=== PATIENT | female | born 1950 | race Caucasian/White ===

== ENCOUNTER 2016-06-03 02:29 | Inpatient (IN) | payer BC ==
[~2016-06-03] VITALS: Ht 172.1 cm; Wt 114.4 kg
[~2016-06-03 02:29] MED LIST: ATEN-39 PO; ESTR1TAB88 PO; FIBER CON; FLAX100016 PO; LOVA40TA70 PO; MULT-543 PO; OLME1TAB12 PO; OMEP20TA11 PO; VIT B
--- OUTSIDE RECORDS SUMMARY | 2016-06-03 02:32 | XMS REPORT | Referral Summary ---
Author Author [facility] Medicine Organization [facility] Address Unknown Phone Unavailable Care Team Providers Care Wares Sorter Name Role Phone Azalia Roger Primary Care Physician [phone] Encounter Date(s): 08/05/14 - 08/05/14 [facility] [address] [place] [address] Discharge Disposition: 01-Home or Self Care Attending Physician: Ramy Roger MD Admitting Physician: Ramy Roger MD Vital Signs Most recent to 1 oldest [Reference Range]: Temperature Tympanic 36.6 degC [36.6-38.1 degC] (08/05/14 10:31 AM) Peripheral Pulse 60 bpm Rate [60-100 bpm] (08/05/14 10:31 AM) Blood Pressure 130/74 mmHg [90-140/60-90 mmHg] (08/05/14 10:31 AM) Problem List Condition Effective Dates Status Health Status Informant Acute Active bronchitis(Confirmed ) Acute lower Active UTI(Confirmed) Visit for screening Active mammogram(Confirmed) Cellulitis of Active nostril(Confirmed) Chicken Active pox(Confirmed) Foot pain, Active left(Confirmed) GERD(Confirmed) Resolved Hand paresthesia - Active both hands(Confirmed) High 2000 Active cholesterol(Confirme d) Hyperlipidemia(Confi Active rmed) Hypertension(Confirm Active ed) Impaired fasting Active blood sugar(Confirmed) Kidney disease Active childhood(Confirmed) Kidney stones Active childhood(Confirmed) Well adult Active exam(Confirmed) Metabolic Active syndrome(Confirmed) Need for influenza Active vaccination(Confirme d) Nephrosis as a Active child(Confirmed) Obstructive sleep Active apnea, adult(Confirmed) MIRELLA (obstructive Active sleep apnea)(Confirmed) Overweight(Confirmed Active ) Plantar fasciitis of Active left foot(Confirmed) Snoring Active disorder(Confirmed) Need for hepatitis A Active and B vaccination(Confirme d) Allergies, Adverse Reactions, Alerts Substance Reaction Severity Status AZO Urinary Pain Relief chest tightness, cough, wheezing Active fluconazole diarrhea Moderate Active lisinopril cough Active Medications atenolol 100 mg oral tablet See Instructions, TAKE ONE TABLET BY MOUTH ONCE DAILY, # 90 tabs, 3 Refill(s), eRx: [place] [id number], TAKE ONE TABLET BY MOUTH ONCE DAILY Start Date: 05/16/14 Status: Ordered biotin 5 mg, Oral, Daily, 0 Refill(s) Start Date: 09/03/13 Status: Ordered Cranberry oral capsule 500 mg oral route daiy, 0 Refill(s) Start Date: 09/10/13 Status: Ordered estradiol 2 mg oral tablet 1 mg 0.5 tabs, Oral, Daily, # 45 tabs, 3 Refill(s), Pharmacy: [place] [id number], 0.5 tabs Oral Daily Start Date: 11/11/14 Status: Ordered flax oral capsule 1 caps, Oral, Daily, 0 Refill(s) Start Date: 09/10/13 Status: Ordered losartan-hydrochlorothiazide 100 mg-25 mg oral tablet See Instructions, TAKE ONE TABLET BY MOUTH ONCE DAILY FOR BLOOD PRESSURE, # 90 tabs, 2 Refill(s), eRx: [place] [id number], TAKE ONE TABLET BY MOUTH ONCE DAILY FOR BLOOD PRESSURE Start Date: 07/04/14 Status: Ordered lovastatin 40 mg oral tablet See Instructions, TAKE ONE TABLET BY MOUTH AT BEDTIME, # 90 tabs, 1 Refill(s), eRx: [place] [id number], TAKE ONE TABLET BY MOUTH AT BEDTIME Start Date: 09/23/14 Status: Ordered Metamucil 525 mg oral capsule 1 caps, Oral, Daily, as needed for constipation, # 100 caps, 0 Refill(s) Start Date: 09/10/13 Status: Ordered multivitamin 1 tablet, Oral, Daily, 0 Refill(s) Start Date: 09/03/13 Status: Ordered omeprazole 20 mg oral delayed release capsule 1 caps, Oral, Daily, 0 Refill(s) Start Date: 09/03/13 Status: Ordered triamcinolone 0.1% topical cream See Instructions, APPLY A THIN LAYER TOPICALLY TO AFFECTED AREA(S) TWICE DAILY. , # 15 unknown unit, eRx: [id number], APPLY A THIN LAYER TOPICALLY TO AFFECTED AREA(S) TWICE DAILY. Start Date: 04/23/14 Status: Ordered Vitamin B Complex oral capsule 1 caps, Oral, Daily, 0 Refill(s) Start Date: 09/03/13 Status: Ordered Vitamin D3 1,000 Intl_Units, Oral, Daily, 0 Refill(s) Start Date: 09/10/13 Status: Ordered Results No data available for this section Immunizations Vaccine Date Refusal Reason hepatitis A-hepatitis B vaccine 11/11/14 hepatitis A-hepatitis B vaccine 05/07/14 hepatitis A-hepatitis B vaccine 03/20/13 influenza virus vaccine, inactivated1 12/11/13 pneumococcal 23-polyvalent vaccine 01/09/07 tetanus/diphtheria/pertussis, acel(Tdap) 03/20/13 tetanus-diphth toxoids (Td) adult/adol 11/26/02 zoster vaccine live 10/26/11 1Result Comment: [12/11/2013] See scanned document Procedures Procedure Date Related Diagnosis Body Site Colonoscopy 2008 Appendectomy 2003 LEEANN BSO - Total abdominal hysterectomy and 2003 bilateral salpingo-oophorectomy Biopsy of breast 1998 Hospitalized for nephrosis as a child Social History Social History Type Response Smoking Status Never smoker Assessment and Plan Extracted from: Title: Ambulatory Patient Education Author: Ramy Roger MD Date: 08/05 Family Medicine Plantar Fasciitis (Heel Spur Syndrome) with Rehab The plantar fascia is a fibrous, ligament-like, soft-tissue structure that spans the bottom of the foot. Plantar fasciitis is a condition that causes pain in the foot due to inflammation of the tissue. SYMPTOMS Pain and tenderness on the underneath side of the foot. Pain that worsens with standing or walking. CAUSES Plantar fasciitis is caused by irritation and injury to the plantar fascia on the underneath side of the foot. Common mechanisms of injury include: Direct trauma to bottom of the foot. Damage to a small nerve that runs under the foot where the main fascia attaches to the heel bone. Stress placed on the plantar fascia due to bone spurs. RISK INCREASES WITH: Activities that place stress on the plantar fascia (running, jumping, pivoting, or cutting). Poor strength and flexibility. Improperly fitted shoes. Tight calf muscles. Flat feet. Failure to warm-up properly before activity. Obesity. PREVENTION Warm up and stretch properly before activity. Allow for adequate recovery between workouts. Maintain physical fitness: Strength, flexibility, and endurance. Cardiovascular fitness. Maintain a health body weight. Avoid stress on the plantar fascia. Wear properly fitted shoes, including arch supports for individuals who have flat feet. PROGNOSIS If treated properly, then the symptoms of plantar fasciitis usually resolve without surgery. However, occasionally surgery is necessary. RELATED COMPLICATIONS Recurrent symptoms that may result in a chronic condition. Problems of the lower back that are caused by compensating for the injury, such as limping. Pain or weakness of the foot during push-off following surgery. Chronic inflammation, scarring, and partial or complete fascia tear, occurring more often from repeated injections. TREATMENT Treatment initially involves the use of ice and medication to help reduce pain and inflammation. The use of strengthening and stretching exercises may help reduce pain with activity, especially stretches of the Achilles tendon. These exercises may be performed at home or with a therapist. Your caregiver may recommend that you use heel cups of arch supports to help reduce stress on the plantar fascia. Occasionally, corticosteroid injections are given to reduce inflammation. If symptoms persist for greater than 6 months despite non- surgical (conservative ), then surgery may be recommended. MEDICATION If pain medication is necessary, then nonsteroidal anti-inflammatory medications, such as aspirin and ibuprofen, or other minor pain relievers, such as acetaminophen, are often recommended. Do not take pain medication within 7 days before surgery. Prescription pain relievers may be given if deemed necessary by your caregiver. Use only as directed and only as much as you need. Corticosteroid injections may be given by your caregiver. These injections should be reserved for the most serious cases, because they may only be given a certain number of times. HEAT AND COLD Cold treatment (icing) relieves pain and reduces inflammation. Cold treatment should be applied for 10 to 15 minutes every 2 to 3 hours for inflammation and pain and immediately after any activity that aggravates your symptoms. Use ice packs or massage the area with a piece of ice (ice massage). Heat treatment may be used prior to performing the stretching and strengthening activities prescribed by your caregiver, physical therapist, or inside sales trainer. Use a heat pack or soak the injury in warm water. SEEK IMMEDIATE MEDICAL CARE IF: Treatment seems to offer no benefit, or the condition worsens. Any medications produce adverse side effects. EXERCISES RANGE OF MOTION (ROM) AND STRETCHING EXERCISES - Plantar Fasciitis (Heel Spur Syndrome) These exercises may help you when beginning to rehabilitate your injury. Your symptoms may resolve with or without further involvement from your physician, physical therapist or inside sales trainer. While completing these exercises, remember: Restoring tissue flexibility helps normal motion to return to the joints. This allows healthier, less painful movement and activity. An effective stretch should be held for at least 30 seconds. A stretch should never be painful. You should only feel a gentle lengthening or release in the stretched tissue. RANGE OF MOTION - Toe Extension, Flexion Sit with your right / left leg crossed over your opposite knee. Grasp your toes and gently pull them back toward the top of your foot. You should feel a stretch on the bottom of your toes and/or foot. Hold this stretch for seconds. Now, gently pull your toes toward the bottom of your foot. You should feel a stretch on the top of your toes and or foot. Hold this stretch for seconds. Repeat times. Complete this stretch times per day. RANGE OF MOTION - Ankle Dorsiflexion, Active Assisted Remove shoes and sit on a chair that is preferably not on a carpeted surface. Place right / left foot under knee. Extend your opposite leg for support. Keeping your heel down, slide your right / left foot back toward the chair until you feel a stretch at your ankle or calf. If you do not feel a stretch, slide your bottom forward to the edge of the chair, while still keeping your heel down. Hold this stretch for seconds. Repeat times. Complete this stretch times per day. STRETCH Gastroc, Standing Place hands on wall. Extend right / left leg, keeping the front knee somewhat bent. Slightly point your toes inward on your back foot. Keeping your right / left heel on the floor and your knee straight, shift your weight toward the wall, not allowing your back to arch. You should feel a gentle stretch in the right / left calf. Hold this position for seconds. Repeat times. Complete this stretch times per day. STRETCH Soleus, Standing Place hands on wall. Extend right / left leg, keeping the other knee somewhat bent. Slightly point your toes inward on your back foot. Keep your right / left heel on the floor, bend your back knee, and slightly shift your weight over the back leg so that you feel a gentle stretch deep in your back calf. Hold this position for seconds. Repeat times. Complete this stretch times per day. STRETCH Gastrocsoleus, Standing Note: This exercise can place a lot of stress on your foot and ankle. Please complete this exercise only if specifically instructed by your caregiver. Place the ball of your right / left foot on a step, keeping your other foot firmly on the same step. Hold on to the wall or a rail for balance. Slowly lift your other foot, allowing your body weight to press your heel down over the edge of the step. You should feel a stretch in your right / left calf. Hold this position for seconds. Repeat this exercise with a slight bend in your right / left knee. Repeat times. Complete this stretch times per day. STRENGTHENING EXERCISES - Plantar Fasciitis (Heel Spur Syndrome) These exercises may help you when beginning to rehabilitate your injury. They may resolve your symptoms with or without further involvement from your physician, physical therapist or inside sales trainer. While completing these exercises, remember: Muscles can gain both the endurance and the strength needed for everyday activities through controlled exercises. Complete these exercises as instructed by your physician, physical therapist or inside sales trainer. Progress the resistance and repetitions only as guided. STRENGTH - Towel Curls Sit in a chair positioned on a non-carpeted surface. Place your foot on a towel, keeping your heel on the floor. Pull the towel toward your heel by only curling your toes. Keep your heel on the floor. If instructed by your physician, physical therapist or inside sales trainer, add at the end of the towel. Repeat times. Complete this exercise times per day. STRENGTH - Ankle Inversion Secure one end of a rubber exercise band/tubing to a fixed object (table, pole). Loop the other end around your foot just before your toes. Place your fists between your knees. This will focus your strengthening at your ankle. Slowly, pull your big toe up and in, making sure the band/tubing is positioned to resist the entire motion. Hold this position for seconds. Have your muscles resist the band/tubing as it slowly pulls your foot back to the starting position. Repeat times. Complete this exercises times per day. Document Released: 03/07/2006 Document Revised: 05/29/2012 Document Reviewed: ExitCare Patient Information 2014 [employer] / [employer]. No follow up information was provided. Extracted from: Title: Metabolic syndrome, HTN Author: Ramy Roger MD Date: 08/05/14 Impression and Plan Diagnosis Bilateral plantar fasciitis (ICD9 728.71, Working, Medical). Cellulitis of nostril (ICD9 682.0, Working, Medical). GERD (ICD9 530.81, Working, Medical). Hyperlipidemia (ICD9 272.4, Working, Medical). Hypertension (ICD9 401.9, Working, Medical). Metabolic syndrome (ICD9 277.7, Working, Medical). Obstructive sleep apnea, adult (ICD9 327.23, Working, Medical). Plan: Use the Mupirocin ointment: tiny amount in each nostril 3 times daily for 10 days. Use Hibiclens soap to the rest of your skin for 10 days: especially under your fingernails. Continue healthy diet and exercise and your foot stretches and ice massage and shoe inserts. Continue your regular meds. See me in 3 months and as needed. . Orders Orders (Selected) Outpatient Orders Ordered Office Visit Level 4 Est 32662: Prescriptions Prescribed mupirocin 2% topical ointment: 1 jer, Topical, TID, tiny amount to both nostrils , 22 g, 1 Refill(s). Dx/Order Association Plan: Diagnosis: Bilateral plantar fasciitis Comment: Ordered: Office Visit Level 4 Est 31938; 08/05/14 11:00:00 CDT, Cellulitis of nostril | Hypertension | Metabolic syndrome | Hyperlipidemia | GERD Diagnosis: Cellulitis of nostril Comment: Ordered: Office Visit Level 4 Est 84065; 08/05/14 11:00:00 CDT, Cellulitis of nostril | Hypertension | Metabolic syndrome | Hyperlipidemia | GERD Diagnosis: GERD Comment: Ordered: Office Visit Level 4 Est 93851; 08/05/14 11:00:00 CDT, Cellulitis of nostril | Hypertension | Metabolic syndrome | Hyperlipidemia | GERD Diagnosis: Hyperlipidemia Comment: Ordered: Office Visit Level 4 Est 72759; 08/05/14 11:00:00 CDT, Cellulitis of nostril | Hypertension | Metabolic syndrome | Hyperlipidemia | GERD Diagnosis: Hypertension Comment: Ordered: Office Visit Level 4 Est 79993; 08/05/14 11:00:00 CDT, Cellulitis of nostril | Hypertension | Metabolic syndrome | Hyperlipidemia | GERD Diagnosis: Metabolic syndrome Comment: Ordered: Office Visit Level 4 Est 98503; 08/05/14 11:00:00 CDT, Cellulitis of nostril | Hypertension | Metabolic syndrome | Hyperlipidemia | GERD Diagnosis: Obstructive sleep apnea, adult Comment: Ordered: Office Visit Level 4 Est 24051; 08/05/14 11:00:00 CDT, Cellulitis of nostril | Hypertension | Metabolic syndrome | Hyperlipidemia | GERD Additional Orders: Comment: Ordered: mupirocin 2% topical ointment,1 jer, Topical, TID, tiny amount to both nostrils, # 22 g, 1 Refill(s), Pharmacy: [facility] End of Orders ."
--- OUTSIDE RECORDS SUMMARY | 2016-06-03 02:32 | XMS REPORT | Referral Summary ---
Author Author [facility] Medicine Organization [facility] Address Unknown Phone Unavailable Care Team Providers Care Goggles Assembler Name Role Phone Azalia Roger Primary Care Physician [phone] Encounter Date(s): 08/05/14 - 08/05/14 [facility] [address] [place] [address] Discharge Disposition: 01-Home or Self Care [...] DAILY, # 90 tabs, 3 Refill(s), eRx: [place] [id number], TAKE ONE TABLET BY MOUTH ONCE DAILY Start Date: 05/16/14 Status: Ordered biotin 5 mg, Oral, Daily, 0 Refill(s) Start Date: 09/03/13 Status: Ordered Cranberry oral capsule 500 mg oral route daiy, 0 Refill(s) Start Date: 09/10/13 Status: Ordered estradiol 2 mg oral tablet 1 mg 0.5 tabs, Oral, Daily, # 45 tabs, 3 Refill(s), Pharmacy: [place] [id number], 0.5 tabs Oral Daily Start Date: 11/11/14 Status: Ordered flax oral capsule 1 caps, Oral, Daily, 0 Refill(s) Start Date: 09/10/13 Status: Ordered losartan-hydrochlorothiazide 100 mg-25 mg oral tablet See Instructions, TAKE ONE TABLET BY MOUTH ONCE DAILY FOR BLOOD PRESSURE, # 90 tabs, 2 Refill(s), eRx: [place] [id number], TAKE ONE TABLET BY MOUTH ONCE DAILY FOR BLOOD PRESSURE Start Date: 07/04/14 Status: Ordered lovastatin 40 mg oral tablet See Instructions, TAKE ONE TABLET BY MOUTH AT BEDTIME, # 90 tabs, 1 Refill(s), eRx: [place] [id number], TAKE ONE TABLET BY MOUTH AT BEDTIME [...] DAILY. , # 15 unknown unit, eRx: [id number], APPLY A THIN LAYER TOPICALLY [...] prescribed by your caregiver, physical therapist, or hearing dog trainer. Use a heat pack or soak [...] involvement from your physician, physical therapist or hearing dog trainer. While completing these exercises, remember: Restoring [...] involvement from your physician, physical therapist or hearing dog trainer. While completing these exercises, remember: Muscles can gain both the endurance and the strength needed for everyday activities through controlled exercises. Complete these exercises as instructed by your physician, physical therapist or hearing dog trainer. Progress the resistance and repetitions only as guided. STRENGTH - Towel Curls Sit in a chair positioned on a non-carpeted surface. Place your foot on a towel, keeping your heel on the floor. Pull the towel toward your heel by only curling your toes. Keep your heel on the floor. If instructed by your physician, physical therapist or hearing dog trainer, add at the end of the [...] 05/29/2012 Document Reviewed: ExitCare Patient Information 2014 [employer]. No follow up information was provided. Extracted [...] Orders Ordered Office Visit Level 4 Est 82315: Prescriptions Prescribed mupirocin 2% topical ointment: 1 jer, Topical, TID, tiny amount to both nostrils , 22 g, 1 Refill(s). Dx/Order Association Plan: Diagnosis: Bilateral plantar fasciitis Comment: Ordered: Office Visit Level 4 Est 87458; 08/05/14 11:00:00 CDT, Cellulitis of nostril | Hypertension | Metabolic syndrome | Hyperlipidemia | GERD Diagnosis: Cellulitis of nostril Comment: Ordered: Office Visit Level 4 Est 13800; 08/05/14 11:00:00 CDT, Cellulitis of nostril | Hypertension | Metabolic syndrome | Hyperlipidemia | GERD Diagnosis: GERD Comment: Ordered: Office Visit Level 4 Est 74852; 08/05/14 11:00:00 CDT, Cellulitis of nostril | Hypertension | Metabolic syndrome | Hyperlipidemia | GERD Diagnosis: Hyperlipidemia Comment: Ordered: Office Visit Level 4 Est 95336; 08/05/14 11:00:00 CDT, Cellulitis of nostril | Hypertension | Metabolic syndrome | Hyperlipidemia | GERD Diagnosis: Hypertension Comment: Ordered: Office Visit Level 4 Est 64521; 08/05/14 11:00:00 CDT, Cellulitis of nostril | Hypertension | Metabolic syndrome | Hyperlipidemia | GERD Diagnosis: Metabolic syndrome Comment: Ordered: Office Visit Level 4 Est 43681; 08/05/14 11:00:00 CDT, Cellulitis of nostril | Hypertension | Metabolic syndrome | Hyperlipidemia | GERD Diagnosis: Obstructive sleep apnea, adult Comment: Ordered: Office Visit Level 4 Est 02148; 08/05/14 11:00:00 CDT, Cellulitis of nostril | Hypertension | Metabolic syndrome | Hyperlipidemia | GERD Additional Orders: Comment: Ordered: mupirocin 2% topical ointment,1 jer, Topical, TID, tiny amount to both nostrils, # 22 g, 1 Refill(s), Pharmacy: [facility] End of Orders ."
--- OUTSIDE RECORDS SUMMARY | 2016-06-03 02:33 | XMS REPORT | Referral Summary ---
Author Organization Unknown Address Unknown Phone Unavailable Care Team Providers Care Director Funds Development Name Role Phone Azalia Roger Primary Care Physician [phone] Encounter VC Date(s): 07/01/14 - 07/01/14 [facility], Founderjennifer Wallace, Podiatry [address], [place] [address] Discharge Diagnosis: Plantar fasciitis of left foot Discharge Disposition: Home or Self Care Attending Physician: Arsen Gonzalez DPM Admitting Physician: Arsen Gonzalez DPM Vital Signs No data available for this section Problem List Condition Effective Dates Status Health Status Informant Acute lower Active UTI(Confirmed) Visit for screening Active mammogram(Confirmed) Chicken Active pox(Confirmed) Foot pain, Active left(Confirmed) [...] DAILY, # 90 tabs, 3 Refill(s), eRx: [id number], TAKE ONE TABLET BY MOUTH ONCE DAILY Special Instructions: TAKE ONE TABLET BY MOUTH ONCE DAILY Start Date: 05/16/14 Status: Ordered biotin 5 mg, Oral, Daily, 0 Refill(s) Start Date: 09/03/13 Status: Ordered cephalexin 500 mg oral capsule 1 caps, Oral, TID, X 10 days, # 30 caps, 0 Refill(s), Pharmacy: [facility] [id number], 1 caps Oral TID,x10 days Start Date: 06/24/14 Stop Date: 07/04/14 Status: Ordered Cranberry oral capsule 500 mg oral route daiy, 0 Refill(s) Special Instructions: 500 mg oral route daiy Start Date: 09/10/13 Status: Ordered estradiol 2 mg oral tablet 0.5 tabs, Oral, Daily, # 45 tabs, 3 Refill(s), eRx: [facility], TAKE ONE TABLET BY MOUTH EVERY OTHER DAY NEEDED Start Date: 05/16/14 Status: Ordered flax oral capsule 1 caps, Oral, Daily, 0 Refill(s) Start Date: 09/10/13 Status: Ordered gabapentin 300 mg oral capsule See Instructions, TAKE ONE CAPSULE BY MOUTH AT BEDTIME, # 30 caps, eRx: [facility], TAKE ONE CAPSULE BY MOUTH AT BEDTIME Special Instructions: TAKE ONE CAPSULE BY MOUTH AT BEDTIME Start Date: 06/17/14 Status: Ordered losartan-hydrochlorothiazide 100 mg-25 mg oral tablet See Instructions, TAKE ONE TABLET BY MOUTH EVERY DAY FOR BLOOD PRESSURE, # 90 tabs, eRx: [place] [id number], TAKE ONE TABLET BY MOUTH EVERY DAY FOR BLOOD PRESSURE Special Instructions: TAKE ONE TABLET BY MOUTH EVERY DAY FOR BLOOD PRESSURE Start Date: 03/19/14 Status: Ordered lovastatin 40 mg oral tablet See Instructions, TAKE ONE TABLET BY MOUTH AT BEDTIME, # 90 tabs, eRx: [facility], TAKE ONE TABLET BY MOUTH AT BEDTIME Special Instructions: TAKE ONE TABLET BY MOUTH AT BEDTIME Start Date: 06/17/14 Status: Ordered Metamucil 525 mg oral capsule [...] DAILY. , # 15 unknown unit, eRx: [id number], APPLY A THIN LAYER TOPICALLY TO AFFECTED AREA(S) TWICE DAILY. Special Instructions: APPLY A THIN LAYER TOPICALLY TO AFFECTED AREA(S) TWICE DAILY. Start Date: 04/23/14 Status: Ordered Vitamin B Complex oral capsule 1 caps, Oral, Daily, 0 Refill(s) Start Date: 09/03/13 Status: Ordered Vitamin D3 1,000 Intl_Units, Oral, Daily, 0 Refill(s) Start Date: 09/10/13 Status: Ordered Results No data available for this section Immunizations Vaccine Date Refusal Reason hepatitis A-hepatitis B vaccine 05/07/14 hepatitis A-hepatitis B vaccine 03/20/13 influenza virus vaccine, inactivated1 12/11/13 pneumococcal 23-polyvalent vaccine 01/09/07 tetanus/diphtheria/pertussis, acel(Tdap) 03/20/13 tetanus-diphth toxoids (Td) adult/adol 11/26/02 zoster vaccine live 10/26/11 1Result Comment: [12/11/2013] See scanned document Procedures Procedure Date Related Diagnosis Body Site Injection(s); single tendon sheath, or 07/01/14 ligament, aponeurosis (eg, plantar "fascia") Colonoscopy 2008 Appendectomy 2003 LEEANN BSO - Total abdominal hysterectomy and 2003 bilateral salpingo-oophorectomy Biopsy of breast 1998 Hospitalized for nephrosis as a child Social History Social History Type Response Smoking Status Never smoker Assessment and Plan Extracted from: Title: Office Visit Note Author: Arsen Gonzalez DPAnne Date: 07/01/14 Assessment/Plan Plantar fasciitis of left foot The patient opted for cortisone injection of left heel today. We discussed possible side effects of injection; spiking of sugar level, rupture of soft tissue structures with high impact exercise activity, atrophy of fat pad with repeated injections, and discoloration at the injection site. After Betadine prep to the maximal point of tenderness of the heel, 1.0 ml of 0.25 % Marcaine and 2.0 ml of Kenalog was injected into the heel. The patient was instructed to ice the injection today and avoid exercising next few days. Venu wrap to left foot. Follow up if condition worsens.
--- OUTSIDE RECORDS SUMMARY | 2016-06-03 02:33 | XMS REPORT | Continuity of Care Document ---
Author Author Edwina VÁZQUEZ, Natan [facility] Address [address] [place] [address] Phone Care Team Providers Care Senior Java Engineer Name Role Phone KanaRamy PP Unavailable Payers Payer name Insurance type Covered libertarian ID Authorization(s) Unknown Problems Condition Effective Dates (start - stop) Clinical Status Sinusitis, Acute - *Acute Hypertension, benign - *Chronic Hyperlipidemia, NOS - *Chronic GERD - *Controlled Shoulder pain, right - *Chronic Stress incontinence - *Chronic Other and unspecified hyperlipidemia - *Chronic Well adult exam - *Stable Hypertension - *Controlled Hypercholesterolemia - *Chronic Plantar fasciitis of left foot - *Chronic Yeast dermatitis - *Chronic Urinary frequency - *Acute Microscopic hematuria - Uncertain PURE HYPERCHOLESTEROLEM - BENIGN HYPERTENSION - Low back pain - Intermittent Diverticulitis - *Acute Hypertension, benign - *Chronic Hypercholesterolemia - *Chronic Diverticulitis - *Resolved Foot callus - *Chronic Low back pain - *Chronic Hypertension - *Chronic Hypercholesterolemia - *Chronic Hypertension, Benign - *Chronic Hyperlipidemia, NOS - *Chronic Hot flashes due to surgical menopause - *Controlled Other and unspecified hyperlipidemia - *Chronic Impaired fasting blood sugar - *Stable Diverticulitis - *Acute Microhematuria - *Acute Hypertension, Benign - *Chronic Other and unspecified hyperlipidemia - *Chronic Family History Family Member Diagnosis Age At Onset Status Mother (Unknown) Pulmonay Embolism Yes Maternal grandmother (Unknown) Parkinson's disease Yes 2 Brothers (Alive) Hypertension Yes 2 Paternal uncles (Alive) Cancer - prostate Yes Paternal aunt (Unknown) Cancer - lung Yes Father (Alive) Alive and well 88 (Unknown) Father (Unknown) Cancer - prostate Yes Father (Unknown) CAD Yes Father (Unknown) Hypertension Yes Paternal uncle (Unknown) Cancer - liver Yes Paternal uncle (Unknown) Cancer - colon Yes Father (Unknown) Diabetes Yes Social History Social History Element Description Quantity Unknown Allergies, Adverse Reactions, Alerts Substance Reaction Severity Status LISINOPRIL cough Unknown FLUCONAZOLE diarrhea mild to moderate Medications Medication Instructions Dosage Effective Dates (start - stop) Status amoxicillin 875 mg tablet take 1 tablet (875MG) by oral route every 12 hours 875 MG - Active omeprazole 20 mg capsule,delayed release take 1 capsule (20MG) by oral route every day before a meal 20 MG - Active Vitamin B Complex capsule take 1 Capsule by Oral route every day 0 2011 - Active Metamucil oral powder take 1 Teaspoon by Oral route every day 0 2011 - Active flaxseed oil 1,000 mg capsule take 1 Tablet by Oral route every day 0 - Active cranberry 500 mg capsule take 1 by Oral route every day 0 - Active multivitamin capsule take 1 Tablet by Oral route every day 0 - Active biotin 5 mg capsule take 1 by Oral route every day 0 - Active triamcinolone acetonide 0.1 % topical cream apply by topical route 2 times every day a thin layer to the affected area(s) 0 - Active lovastatin 40 mg tablet Take 1 tablet by mouth at bedtime. - Active losartan 100 mg-hydrochlorothiazide 25 mg tablet Take 1 tablet by mouth every day for BP. - Active estradiol 2 mg tablet Take one tablet by mouth every other day as needed - Active atenolol 100 mg tablet Take 1 tablet by mouth every day. - Active Immunizations Vaccine Date Status Comments Twinrix ordered Tdap (Boostrix r) ordered Td (adult) completed - Completed reason: source unspecified pneumo (2 yrs or older) (PPV23) completed - Completed reason: source unspecified Zoster completed - Completed reason: source unspecified Results Test Name Date and Time Measure Units Reference Range Abnormal Flag Comments Unknown Vital Signs Date / Time: Height Weight Pulse Rate Blood Pressure Temperature /18:18:00 66.36 in 236.00 lbs 73 /min 122/78 mm[Hg] 97.5 F Procedures Procedure Date Unknown Encounters Encounter Location Date Patient Visit [facility] Patient Visit [facility] Patient Visit [facility] Patient Visit [facility] Patient Visit [facility] Patient Visit [facility] Patient Visit [facility] Patient Visit [facility] Patient Visit [facility] Patient Visit [facility] Patient Visit [facility] Patient Visit [facility] Patient Visit [facility] Advance Directives Directive Effective Date Unknown
--- OUTSIDE RECORDS SUMMARY | 2016-06-03 02:33 | XMS REPORT | Referral Summary ---
Author Author [facility] Medicine Organization [facility] Address Unknown Phone Unavailable Care Team Providers Care Manager Discovery Name Role Phone Azalia Roger Primary Care Physician [phone] Encounter Date(s): 08/05/14 - 08/05/14 [facility] [address] [place] [address] Discharge Disposition: 01-Home or Self Care [...] DAILY, # 90 tabs, 3 Refill(s), eRx: [facility] [id number], TAKE ONE TABLET BY MOUTH ONCE DAILY Start Date: 05/16/14 Status: Ordered biotin 5 mg, Oral, Daily, 0 Refill(s) Start Date: 09/03/13 Status: Ordered Cranberry oral capsule 500 mg oral route daiy, 0 Refill(s) Start Date: 09/10/13 Status: Ordered estradiol 2 mg oral tablet 1 mg 0.5 tabs, Oral, Daily, # 45 tabs, 3 Refill(s), Pharmacy: [facility] [id number], 0.5 tabs Oral Daily Start Date: 11/11/14 Status: Ordered flax oral capsule 1 caps, Oral, Daily, 0 Refill(s) Start Date: 09/10/13 Status: Ordered losartan-hydrochlorothiazide 100 mg-25 mg oral tablet See Instructions, TAKE ONE TABLET BY MOUTH ONCE DAILY FOR BLOOD PRESSURE, # 90 tabs, 2 Refill(s), eRx: [facility] [id number], TAKE ONE TABLET BY MOUTH ONCE DAILY FOR BLOOD PRESSURE Start Date: 07/04/14 Status: Ordered lovastatin 40 mg oral tablet See Instructions, TAKE ONE TABLET BY MOUTH AT BEDTIME, # 90 tabs, 1 Refill(s), eRx: [place] [id number], TAKE ONE TABLET BY MOUTH AT BEDTIME [...] DAILY. , # 15 unknown unit, eRx: [id number], APPLY A THIN LAYER TOPICALLY [...] prescribed by your caregiver, physical therapist, or sports medicine trainer. Use a heat pack or soak [...] involvement from your physician, physical therapist or sports medicine trainer. While completing these exercises, remember: Restoring [...] involvement from your physician, physical therapist or sports medicine trainer. While completing these exercises, remember: Muscles can gain both the endurance and the strength needed for everyday activities through controlled exercises. Complete these exercises as instructed by your physician, physical therapist or sports medicine trainer. Progress the resistance and repetitions only as guided. STRENGTH - Towel Curls Sit in a chair positioned on a non-carpeted surface. Place your foot on a towel, keeping your heel on the floor. Pull the towel toward your heel by only curling your toes. Keep your heel on the floor. If instructed by your physician, physical therapist or sports medicine trainer, add at the end of the [...] 05/29/2012 Document Reviewed: ExitCare Patient Information 2014 [employer]. No follow up information was provided. Extracted [...] Orders Ordered Office Visit Level 4 Est 44315: Prescriptions Prescribed mupirocin 2% topical ointment: 1 jer, Topical, TID, tiny amount to both nostrils , 22 g, 1 Refill(s). Dx/Order Association Plan: Diagnosis: Bilateral plantar fasciitis Comment: Ordered: Office Visit Level 4 Est 99758; 08/05/14 11:00:00 CDT, Cellulitis of nostril | Hypertension | Metabolic syndrome | Hyperlipidemia | GERD Diagnosis: Cellulitis of nostril Comment: Ordered: Office Visit Level 4 Est [id number]; 08/05/14 11:00:00 CDT, Cellulitis of nostril | Hypertension | Metabolic syndrome | Hyperlipidemia | GERD Diagnosis: GERD Comment: Ordered: Office Visit Level 4 Est [id number]; 08/05/14 11:00:00 CDT, Cellulitis of nostril | Hypertension | Metabolic syndrome | Hyperlipidemia | GERD Diagnosis: Hyperlipidemia Comment: Ordered: Office Visit Level 4 Est [id number]; 08/05/14 11:00:00 CDT, Cellulitis of nostril | Hypertension | Metabolic syndrome | Hyperlipidemia | GERD Diagnosis: Hypertension Comment: Ordered: Office Visit Level 4 Est 79252; 08/05/14 11:00:00 CDT, Cellulitis of nostril | Hypertension | Metabolic syndrome | Hyperlipidemia | GERD Diagnosis: Metabolic syndrome Comment: Ordered: Office Visit Level 4 Est [id number]; 08/05/14 11:00:00 CDT, Cellulitis of nostril | Hypertension | Metabolic syndrome | Hyperlipidemia | GERD Diagnosis: Obstructive sleep apnea, adult Comment: Ordered: Office Visit Level 4 Est [id number]; 08/05/14 11:00:00 CDT, Cellulitis of nostril | Hypertension | Metabolic syndrome | Hyperlipidemia | GERD Additional Orders: Comment: Ordered: mupirocin 2% topical ointment,1 jer, Topical, TID, tiny amount to both nostrils, # 22 g, 1 Refill(s), Pharmacy: [facility] End of Orders ."
--- OUTSIDE RECORDS SUMMARY | 2016-06-03 02:33 | XMS REPORT | Referral Summary ---
Author Author [facility] Medicine Organization [facility] Address Unknown Phone Unavailable Care Team Providers Care Garland Machine Operator Name Role Phone Azalia Roger Primary Care Physician [phone] Encounter Date(s): 08/05/14 - 08/05/14 [facility] [address] [place] [address] Discharge Disposition: 01-Home [...] DAILY, # 90 tabs, 3 Refill(s), eRx: [facility] [id number], TAKE ONE TABLET BY MOUTH ONCE DAILY Start Date: 05/16/14 Status: Ordered biotin 5 mg, Oral, Daily, 0 Refill(s) Start Date: 09/03/13 Status: Ordered Cranberry oral capsule 500 mg oral route daiy, 0 Refill(s) Start Date: 09/10/13 Status: Ordered estradiol 2 mg oral tablet 1 mg 0.5 tabs, Oral, Daily, # 45 tabs, 3 Refill(s), Pharmacy: [facility] [place] [id number], 0.5 tabs Oral Daily Start Date: 11/11/14 Status: Ordered flax oral capsule 1 caps, Oral, Daily, 0 Refill(s) Start Date: 09/10/13 Status: Ordered losartan-hydrochlorothiazide 100 mg-25 mg oral tablet See Instructions, TAKE ONE TABLET BY MOUTH ONCE DAILY FOR BLOOD PRESSURE, # 90 tabs, 2 Refill(s), eRx: [facility] [place] [id number], TAKE ONE TABLET BY MOUTH ONCE DAILY FOR BLOOD PRESSURE Start Date: 07/04/14 Status: Ordered lovastatin 40 mg oral tablet See Instructions, TAKE ONE TABLET BY MOUTH AT BEDTIME, # 90 tabs, 1 Refill(s), eRx: [facility] [place] [id number], TAKE ONE TABLET BY MOUTH AT BEDTIME [...] DAILY. , # 15 unknown unit, eRx: [id number], APPLY A THIN LAYER TOPICALLY [...] prescribed by your caregiver, physical therapist, or aed trainer. Use a heat pack or soak [...] involvement from your physician, physical therapist or aed trainer. While completing these exercises, remember: Restoring [...] involvement from your physician, physical therapist or aed trainer. While completing these exercises, remember: Muscles can gain both the endurance and the strength needed for everyday activities through controlled exercises. Complete these exercises as instructed by your physician, physical therapist or aed trainer. Progress the resistance and repetitions only as guided. STRENGTH - Towel Curls Sit in a chair positioned on a non-carpeted surface. Place your foot on a towel, keeping your heel on the floor. Pull the towel toward your heel by only curling your toes. Keep your heel on the floor. If instructed by your physician, physical therapist or aed trainer, add at the end of the [...] 05/29/2012 Document Reviewed: ExitCare Patient Information 2014 [employer]. No follow up information was provided. Extracted [...] Orders Ordered Office Visit Level 4 Est 46303: Prescriptions Prescribed mupirocin 2% topical ointment: 1 jer, Topical, TID, tiny amount to both nostrils , 22 g, 1 Refill(s). Dx/Order Association Plan: Diagnosis: Bilateral plantar fasciitis Comment: Ordered: Office Visit Level 4 Est [id number]; 08/05/14 11:00:00 CDT, Cellulitis of nostril | Hypertension | Metabolic syndrome | Hyperlipidemia | GERD Diagnosis: Cellulitis of nostril Comment: Ordered: Office Visit Level 4 Est 92200; 08/05/14 11:00:00 CDT, Cellulitis of nostril | Hypertension | Metabolic syndrome | Hyperlipidemia | GERD Diagnosis: GERD Comment: Ordered: Office Visit Level 4 Est 12126; 08/05/14 11:00:00 CDT, Cellulitis of nostril | Hypertension | Metabolic syndrome | Hyperlipidemia | GERD Diagnosis: Hyperlipidemia Comment: Ordered: Office Visit Level 4 Est 05866; 08/05/14 11:00:00 CDT, Cellulitis of nostril | Hypertension | Metabolic syndrome | Hyperlipidemia | GERD Diagnosis: Hypertension Comment: Ordered: Office Visit Level 4 Est [id number]; 08/05/14 11:00:00 CDT, Cellulitis of nostril | Hypertension | Metabolic syndrome | Hyperlipidemia | GERD Diagnosis: Metabolic syndrome Comment: Ordered: Office Visit Level 4 Est [id number]; 08/05/14 11:00:00 CDT, Cellulitis of nostril | Hypertension | Metabolic syndrome | Hyperlipidemia | GERD Diagnosis: Obstructive sleep apnea, adult Comment: Ordered: Office Visit Level 4 Est [id number]; 08/05/14 11:00:00 CDT, Cellulitis of nostril | Hypertension | Metabolic syndrome | Hyperlipidemia | GERD Additional Orders: Comment: Ordered: mupirocin 2% topical ointment,1 jer, Topical, TID, tiny amount to both nostrils, # 22 g, 1 Refill(s), Pharmacy: [facility] End of Orders ."
--- OUTSIDE RECORDS SUMMARY | 2016-06-03 02:33 | XMS REPORT | Referral Summary ---
Author Author [facility] Medicine Organization [facility] Address Unknown Phone Unavailable Care Team Providers Care Parking Enforcement Manager Name Role Phone Azalia Roger Primary Care Physician [phone] Encounter Date(s): 08/05/14 - 08/05/14 [facility] [address] [place] [address] Discharge Disposition: 01-Home or Self [...] DAILY, # 90 tabs, 3 Refill(s), eRx: [place] [id number], TAKE ONE TABLET BY MOUTH ONCE DAILY Start Date: 05/16/14 Status: Ordered biotin 5 mg, Oral, Daily, 0 Refill(s) Start Date: 09/03/13 Status: Ordered Cranberry oral capsule 500 mg oral route daiy, 0 Refill(s) Start Date: 09/10/13 Status: Ordered estradiol 2 mg oral tablet 1 mg 0.5 tabs, Oral, Daily, # 45 tabs, 3 Refill(s), Pharmacy: [place] [id number], 0.5 tabs Oral Daily Start Date: 11/11/14 Status: Ordered flax oral capsule 1 caps, Oral, Daily, 0 Refill(s) Start Date: 09/10/13 Status: Ordered losartan-hydrochlorothiazide 100 mg-25 mg oral tablet See Instructions, TAKE ONE TABLET BY MOUTH ONCE DAILY FOR BLOOD PRESSURE, # 90 tabs, 2 Refill(s), eRx: [place] [id number], TAKE ONE TABLET BY MOUTH ONCE DAILY FOR BLOOD PRESSURE Start Date: 07/04/14 Status: Ordered lovastatin 40 mg oral tablet See Instructions, TAKE ONE TABLET BY MOUTH AT BEDTIME, # 90 tabs, 1 Refill(s), eRx: [place] [id number], TAKE ONE TABLET BY MOUTH AT BEDTIME [...] DAILY. , # 15 unknown unit, eRx: [id number], APPLY A THIN LAYER TOPICALLY [...] 05/29/2012 Document Reviewed: ExitCare Patient Information 2014 [employer]. No follow up information was provided. Extracted [...] Orders Ordered Office Visit Level 4 Est 01208: Prescriptions Prescribed mupirocin 2% topical ointment: 1 jer, Topical, TID, tiny amount to both nostrils , 22 g, 1 Refill(s). Dx/Order Association Plan: Diagnosis: Bilateral plantar fasciitis Comment: Ordered: Office Visit Level 4 Est 88130; 08/05/14 11:00:00 CDT, Cellulitis of nostril | Hypertension | Metabolic syndrome | Hyperlipidemia | GERD Diagnosis: Cellulitis of nostril Comment: Ordered: Office Visit Level 4 Est 55494; 08/05/14 11:00:00 CDT, Cellulitis of nostril | Hypertension | Metabolic syndrome | Hyperlipidemia | GERD Diagnosis: GERD Comment: Ordered: Office Visit Level 4 Est 67848; 08/05/14 11:00:00 CDT, Cellulitis of nostril | Hypertension | Metabolic syndrome | Hyperlipidemia | GERD Diagnosis: Hyperlipidemia Comment: Ordered: Office Visit Level 4 Est 15417; 08/05/14 11:00:00 CDT, Cellulitis of nostril | Hypertension | Metabolic syndrome | Hyperlipidemia | GERD Diagnosis: Hypertension Comment: Ordered: Office Visit Level 4 Est 84087; 08/05/14 11:00:00 CDT, Cellulitis of nostril | Hypertension | Metabolic syndrome | Hyperlipidemia | GERD Diagnosis: Metabolic syndrome Comment: Ordered: Office Visit Level 4 Est 80496; 08/05/14 11:00:00 CDT, Cellulitis of nostril | Hypertension | Metabolic syndrome | Hyperlipidemia | GERD Diagnosis: Obstructive sleep apnea, adult Comment: Ordered: Office Visit Level 4 Est 05498; 08/05/14 11:00:00 CDT, Cellulitis of nostril | Hypertension | Metabolic syndrome | Hyperlipidemia | GERD Additional Orders: Comment: Ordered: mupirocin 2% topical ointment,1 jer, Topical, TID, tiny amount to both nostrils, # 22 g, 1 Refill(s), Pharmacy: [facility] End of Orders ."
--- OUTSIDE RECORDS SUMMARY | 2016-06-03 02:33 | XMS REPORT | Referral Summary ---
Author Author [facility], Immediate Care Organization [facility] Address Unknown Phone Unavailable Care Team Providers Care Home Health Clinical Supervisor Name Role Phone Azalia Roger Primary Care Physician [phone] Encounter VC Date(s): 12/31/15 - 12/31/15 [facility], [address] [place] [id number] Discharge Diagnosis: Abscess of umbilicus Discharge Disposition: 01-Home or Self Care Attending Physician: Zeus Espinosa PA-C Admitting Physician: Zeus Espinosa PA-C Vital Signs Most recent to 1 oldest [Reference Range]: Temperature Tympanic 36.4 degC [36.6-38.1 degC] *LOW* (12/31/15 6:35 PM) Peripheral Pulse 71 bpm Rate [60-100 bpm] (12/31/15 6:35 PM) Blood Pressure 132/78 mmHg [90-140/60-90 mmHg] (12/31/15 6:35 PM) SpO2 98 % (12/31/15 6:35 PM) Problem List Condition Effective Dates Status Health [...] BY MOUTH ONCE DAILY, # 90 tabs, 2 Refill(s), eRx: [id number], TAKE ONE TABLET BY MOUTH ONCE DAILY Start Date: 08/19/15 Status: Ordered Bactrim DS 800 mg-160 mg oral tablet 1 tabs, Oral, BID, X 7 days, # 14 tabs, 0 Refill(s), called to pharmacy (Rx) Start Date: 12/30/15 Stop Date: 01/06/16 Status: Ordered biotin 5 mg, Oral, Daily, 0 Refill(s) Start Date: 09/03/13 Status: Ordered Cranberry oral capsule 500 mg oral route daiy, 0 Refill(s) Start Date: 09/10/13 Status: Ordered estradiol 2 mg oral tablet 1 mg 0.5 tabs, Oral, Daily, # 45 tabs, 3 Refill(s), Pharmacy: [place] [id number], 0.5 tabs Oral Daily Start Date: 11/11/14 Status: Ordered flax oral capsule 1 caps, Oral, Daily, 0 Refill(s) Start Date: 09/10/13 Status: Ordered losartan-hydrochlorothiazide 100 mg-25 mg oral tablet See Instructions, TAKE ONE TABLET BY MOUTH ONCE DAILY FOR BLOOD PRESSURE, # 90 tabs, 3 Refill(s), eRx: [facility], TAKE ONE TABLET BY MOUTH ONCE DAILY FOR BLOOD PRESSURE Start Date: 06/16/15 Status: Ordered lovastatin 40 mg oral tablet See Instructions, TAKE ONE TABLET BY MOUTH AT BEDTIME, # 90 tabs, 3 Refill(s), eRx: [facility], TAKE ONE TABLET BY MOUTH AT BEDTIME Start Date: 06/24/15 Status: Ordered Metamucil 525 mg oral capsule 1 caps, Oral, Daily, as needed for constipation, # 100 caps, 0 Refill(s) Start Date: 09/10/13 Status: Ordered multivitamin 1 tablet, Oral, Daily, 0 Refill(s) Start Date: 09/03/13 Status: Ordered omeprazole 20 mg oral delayed release capsule 1 caps, Oral, Daily, 0 Refill(s) Start Date: 09/03/13 Status: Ordered traMADol 50 mg oral tablet 50 mg 1 tabs, Oral, q6hr, as needed for pain, X 5 days, # 20 tabs, 0 Refill(s), called to pharmacy (Rx) Start Date: 12/30/15 Stop Date: 01/04/16 Status: Ordered triamcinolone 0.1% topical cream See Instructions, APPLY A THIN LAYER TOPICALLY TO AFFECTED AREA(S) TWICE DAILY. , # 15 unknown unit, eRx: [id number], APPLY A THIN LAYER TOPICALLY TO AFFECTED AREA(S) TWICE DAILY. Start Date: 04/22/15 Status: Ordered Vitamin B Complex oral capsule 1 caps, Oral, Daily, 0 Refill(s) Start Date: 09/03/13 Status: Ordered Vitamin D3 1,000 Intl_Units, Oral, Daily, 0 Refill(s) Start Date: 09/10/13 Status: Ordered Results No data available for this section Immunizations Vaccine Date Refusal Reason hepatitis A-hepatitis B vaccine 11/11/14 hepatitis A-hepatitis B vaccine 05/07/14 hepatitis A-hepatitis B vaccine 03/20/13 influenza virus vaccine, inactivated 12/23/15 influenza virus vaccine, inactivated1 12/11/13 pneumococcal 23-polyvalent vaccine 01/09/07 tetanus/diphtheria/pertussis, acel(Tdap) 03/20/13 tetanus-diphth toxoids (Td) adult/adol 11/26/02 zoster vaccine live 10/26/11 1Result Comment: [12/11/2013] See scanned document Procedures Procedure Date Related Diagnosis Body Site Colonoscopy 2009 Appendectomy 2004 [facility] - Total abdominal hysterectomy and 2004 bilateral salpingo-oophorectomy Biopsy of breast 1998 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 No malodor. The wound was cleansed with Betadine. Packing was replaced,covered with Xeroform4 x 4's andtape.She tolerated the procedure well. Follow-up tomorrow for repacking. Ordered: Wound Culture
--- OUTSIDE RECORDS SUMMARY | 2016-06-03 02:33 | XMS REPORT | Referral Summary ---
Author Author [facility] Medicine Organization [facility] Address Unknown Phone Unavailable Care Team Providers Care Slip Bridge Operator Name Role Phone Azalia Roger Primary Care Physician [phone] Encounter Date(s): 08/05/14 - 08/05/14 [facility] [address] [place] [id number] Discharge Disposition: 01-Home or Self [...] DAILY, # 90 tabs, 3 Refill(s), eRx: [place] [id number], TAKE ONE TABLET BY MOUTH ONCE DAILY Start Date: 05/16/14 Status: Ordered biotin 5 mg, Oral, Daily, 0 Refill(s) Start Date: 09/03/13 Status: Ordered Cranberry oral capsule 500 mg oral route daiy, 0 Refill(s) Start Date: 09/10/13 Status: Ordered estradiol 2 mg oral tablet 1 mg 0.5 tabs, Oral, Daily, # 45 tabs, 3 Refill(s), Pharmacy: [place] [id number], 0.5 tabs Oral Daily Start Date: 11/11/14 Status: Ordered flax oral capsule 1 caps, Oral, Daily, 0 Refill(s) Start Date: 09/10/13 Status: Ordered losartan-hydrochlorothiazide 100 mg-25 mg oral tablet See Instructions, TAKE ONE TABLET BY MOUTH ONCE DAILY FOR BLOOD PRESSURE, # 90 tabs, 2 Refill(s), eRx: [place] [id number], TAKE ONE TABLET BY MOUTH ONCE DAILY FOR BLOOD PRESSURE Start Date: 07/04/14 Status: Ordered lovastatin 40 mg oral tablet See Instructions, TAKE ONE TABLET BY MOUTH AT BEDTIME, # 90 tabs, 1 Refill(s), eRx: [place] [id number], TAKE ONE TABLET BY MOUTH AT BEDTIME [...] DAILY. , # 15 unknown unit, eRx: [id number], APPLY A THIN LAYER TOPICALLY [...] prescribed by your caregiver, physical therapist, or human resources trainer. Use a heat pack or soak [...] involvement from your physician, physical therapist or human resources trainer. While completing these exercises, remember: Restoring [...] involvement from your physician, physical therapist or human resources trainer. While completing these exercises, remember: Muscles can gain both the endurance and the strength needed for everyday activities through controlled exercises. Complete these exercises as instructed by your physician, physical therapist or human resources trainer. Progress the resistance and repetitions only as guided. STRENGTH - Towel Curls Sit in a chair positioned on a non-carpeted surface. Place your foot on a towel, keeping your heel on the floor. Pull the towel toward your heel by only curling your toes. Keep your heel on the floor. If instructed by your physician, physical therapist or human resources trainer, add at the end of the [...] 05/29/2012 Document Reviewed: [employer] Patient Information 2014 [email or web address]. No follow up information was provided. Extracted [...] Orders Ordered Office Visit Level 4 Est 90688: Prescriptions Prescribed mupirocin 2% topical ointment: 1 jer, Topical, TID, tiny amount to both nostrils , 22 g, 1 Refill(s). Dx/Order Association Plan: Diagnosis: Bilateral plantar fasciitis Comment: Ordered: Office Visit Level 4 Est 11159; 08/05/14 11:00:00 CDT, Cellulitis of nostril | Hypertension | Metabolic syndrome | Hyperlipidemia | GERD Diagnosis: Cellulitis of nostril Comment: Ordered: Office Visit Level 4 Est 54635; 08/05/14 11:00:00 CDT, Cellulitis of nostril | Hypertension | Metabolic syndrome | Hyperlipidemia | GERD Diagnosis: GERD Comment: Ordered: Office Visit Level 4 Est 79663; 08/05/14 11:00:00 CDT, Cellulitis of nostril | Hypertension | Metabolic syndrome | Hyperlipidemia | GERD Diagnosis: Hyperlipidemia Comment: Ordered: Office Visit Level 4 Est 13747; 08/05/14 11:00:00 CDT, Cellulitis of nostril | Hypertension | Metabolic syndrome | Hyperlipidemia | GERD Diagnosis: Hypertension Comment: Ordered: Office Visit Level 4 Est 76622; 08/05/14 11:00:00 CDT, Cellulitis of nostril | Hypertension | Metabolic syndrome | Hyperlipidemia | GERD Diagnosis: Metabolic syndrome Comment: Ordered: Office Visit Level 4 Est 17735; 08/05/14 11:00:00 CDT, Cellulitis of nostril | Hypertension | Metabolic syndrome | Hyperlipidemia | GERD Diagnosis: Obstructive sleep apnea, adult Comment: Ordered: Office Visit Level 4 Est 51795; 08/05/14 11:00:00 CDT, Cellulitis of nostril | Hypertension | Metabolic syndrome | Hyperlipidemia | GERD Additional Orders: Comment: Ordered: mupirocin 2% topical ointment,1 jer, Topical, TID, tiny amount to both nostrils, # 22 g, 1 Refill(s), Pharmacy: [facility] End of Orders ."
--- OUTSIDE RECORDS SUMMARY | 2016-06-03 02:33 | XMS REPORT | Referral Summary ---
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 Role Phone Azalia Roger Primary Care Physician [phone] Encounter VC Date(s): 05/20/15 - 05/20/15 [facility] LUCAS Yanez [facility], [address] [place] [id number] Discharge Disposition: 01-Home or Self Care Attending Physician: Ramy Roger MD Admitting Physician: Ramy Roger MD Vital Signs Most recent to 1 oldest [Reference Range]: Temperature Tympanic 36.7 degC [36.6-38.1 degC] (05/20/15 8:55 AM) Peripheral Pulse 64 bpm Rate [60-100 bpm] (05/20/15 8:55 AM) Respiratory Rate 16 br/min [14-20 br/min] (05/20/15 8:55 AM) Blood Pressure 134/90 mmHg [90-140/60-90 mmHg] (05/20/15 8:55 AM) Problem List Condition Effective Dates Status [...] DAILY, # 90 tabs, 3 Refill(s), eRx: [place] [id number], TAKE ONE TABLET BY MOUTH ONCE DAILY Start Date: 05/16/14 Status: Ordered biotin 5 mg, Oral, Daily, 0 Refill(s) Start Date: 09/03/13 Status: Ordered cephalexin 500 mg oral capsule 500 mg 1 caps, Oral, TID, X 7 days, # 21 caps, 0 Refill(s), Pharmacy: [place] [id number], 1 caps Oral TID,x7 days Start Date: 05/20/15 Stop Date: 05/27/15 Status: Ordered Cranberry oral capsule 500 mg oral route daiy, 0 Refill(s) Start Date: 09/10/13 Status: Ordered estradiol 2 mg oral tablet 1 mg 0.5 tabs, Oral, Daily, # 45 tabs, 3 Refill(s), Pharmacy: [place] [id number], 0.5 tabs Oral Daily Start Date: 11/11/14 Status: Ordered flax oral capsule 1 caps, Oral, Daily, 0 Refill(s) Start Date: 09/10/13 Status: Ordered losartan-hydrochlorothiazide 100 mg-25 mg oral tablet See Instructions, TAKE ONE TABLET BY MOUTH ONCE DAILY FOR BLOOD PRESSURE, # 90 tabs, eRx: [place] [id number], TAKE ONE TABLET BY MOUTH ONCE DAILY FOR BLOOD PRESSURE Start Date: 03/18/15 Status: Ordered lovastatin 40 mg oral tablet See Instructions, TAKE ONE TABLET BY MOUTH AT BEDTIME, # 90 tabs, eRx: [place] [id number], TAKE ONE TABLET BY MOUTH AT BEDTIME Start Date: 03/31/15 Status: Ordered Metamucil 525 mg oral capsule [...] DAILY. , # 15 unknown unit, eRx: [id number], APPLY A THIN LAYER TOPICALLY TO AFFECTED AREA(S) TWICE DAILY. Start Date: 04/22/15 Status: Ordered Vitamin B Complex oral capsule 1 caps, Oral, Daily, 0 Refill(s) Start Date: 09/03/13 Status: Ordered Vitamin D3 1,000 Intl_Units, Oral, Daily, 0 Refill(s) Start Date: 09/10/13 Status: Ordered Results Hematology Most recent to 1 oldest [Reference Range]: WBC [4.8-10.8 6.1 10*3/uL 10*3/uL] (05/20/15 9:40 AM) RBC [4.00-5.20] 4.08 (05/20/15 9:40 AM) Hgb [12.0-16.0 12.8 gm/dL gm/dL] (05/20/15 9:40 AM) Hct [37.0-47.0 %] 38.1 % (05/20/15 9:40 AM) MCV [82.0-99.0 fL] 93.4 fL (05/20/15 9:40 AM) MCH [27.0-32.0 pg] 31.4 pg (05/20/15 9:40 AM) MCHC [32.0-36.0 33.6 gm/dL gm/dL] (05/20/15 9:40 AM) RDW [11.5-14.5 %] 12.6 % (05/20/15 9:40 AM) Platelet [150-400 308 10*3/uL 10*3/uL] (05/20/15 9:40 AM) MPV [8.8-14.8 fL] 9.8 fL (05/20/15 9:40 AM) Immature 0.2 % Granulocytes (05/20/15 9:40 AM) [0.0-1.0 %] Neutrophils [51-75 59 % %] (05/20/15 9:40 AM) Lymphocytes [20-46 24 % %] (05/20/15 9:40 AM) Monocytes [4-11 %] 11 % (05/20/15 9:40 AM) Eosinophils [0-4 %] 5 % *HI* (05/20/15 9:40 AM) Basophils [0-2 %] 1 % (05/20/15 9:40 AM) Neutro Absolute 3.59 10*3 [1.90-7.00 10*3] (05/20/15 9:40 AM) Lymph Absolute 1.47 10*3 [0.80-3.30 10*3] (05/20/15 9:40 AM) [place] Absolute 0.67 10*3 [0.30-1.00 10*3] (05/20/15 9:40 AM) Eos Absolute 0.29 10*3 [0.00-0.50 10*3] (05/20/15 9:40 AM) Baso Absolute 0.03 10*3 [0.00-0.20 10*3] (05/20/15 9:40 AM) Chemistry Most recent to 1 oldest [Reference Range]: Sodium Lvl [135-144 140 mEq/L mEq/L] (05/20/15 9:40 AM) Potassium Lvl 3.9 mEq/L [3.5-5.2 mEq/L] (05/20/15 9:40 AM) Chloride [99-111 104 mEq/L mEq/L] (05/20/15 9:40 AM) CO2 [22-31 mEq/L] 26 mEq/L (05/20/15 9:40 AM) AGAP [3-20] 10 (05/20/15 9:40 AM) BUN [10-20 mg/dL] 14 mg/dL (05/20/15 9:40 AM) Glucose Lvl [70-99 109 mg/dL mg/dL] *HI* (05/20/15 9:40 AM) Creatinine Lvl 0.76 mg/dL [0.57-1.11 mg/dL] (05/20/15 9:40 AM) eGFR [>60 mL/min] >60 mL/min 1 (05/20/15 9:40 AM) Calcium Lvl 9.3 mg/dL [8.9-10.5 mg/dL] (05/20/15 9:40 AM) Albumin Lvl [3.4-4.8 4.2 gm/dL gm/dL] (05/20/15 9:40 AM) Total Protein 6.8 gm/dL [6.2-8.1 gm/dL] (05/20/15 9:40 AM) Globulin [1.8-4.0 2.6 gm/dL gm/dL] (05/20/15 9:40 AM) ALT [0-55 U/L] 25 U/L (05/20/15 9:40 AM) AST [5-34 U/L] 24 U/L (05/20/15 9:40 AM) Alk Phos [40-150 84 U/L U/L] (05/20/15 9:40 AM) Bili Total [0.2-1.2 0.8 mg/dL mg/dL] (05/20/15 9:40 AM) Chol [0-199 mg/dL] 209 mg/dL *HI* (05/20/15 9:40 AM) Trig [0-149 mg/dL] 125 mg/dL (05/20/15 9:40 AM) HDL [40-84 mg/dL] 56 mg/dL (05/20/15 9:40 AM) LDL [0-130 mg/dL] 128 mg/dL (05/20/15 9:40 AM) VLDL Cholesterol 25 mg/dL [0-28 mg/dL] (05/20/15 9:40 AM) Cardiac Risk 3.7 [0.0-5.0] (05/20/15 9:40 AM) Hgb A1c [4.1-5.6 %] 6.1 % *HI* (05/20/15 9:40 AM) eAvg Glucose 128.4 mg/dL (05/20/15 9:40 AM) 1Result Comment: Multiply eGFR results by 1.21 for race. Urinalysis Most recent to 1 oldest [Reference Range]: UA Color Yellow (05/20/15 9:44 AM) UA Appear Cloudy *ABN* (05/20/15 9:44 AM) UA pH [5.0-8.0] 7.0 (05/20/15 9:44 AM) UA Leuk Est Negative [Negative] (05/20/15 9:44 AM) UA Nitrite Negative [Negative] (05/20/15 9:44 AM) UA Protein Negative [Negative] (05/20/15 9:44 AM) UA Glucose Negative [Negative] (05/20/15 9:44 AM) UA Ketones Negative [Negative] (05/20/15 9:44 AM) UA Urobilinogen 0.2 mg/dL [<1.0 mg/dL] (05/20/15 9:44 AM) UA Bili [Negative] Negative (05/20/15 9:44 AM) UA Blood [Negative] Negative (05/20/15 9:44 AM) UA Spec Grav 1.017 [1.003-1.030] (05/20/15 9:44 AM) Type Clean Catch (05/20/15 9:44 AM) Immunizations Vaccine Date Refusal Reason hepatitis A-hepatitis B vaccine 11/11/14 hepatitis A-hepatitis B vaccine 05/07/14 hepatitis A-hepatitis B vaccine 03/20/13 influenza virus vaccine, inactivated1 12/11/13 pneumococcal 23-polyvalent vaccine 01/09/07 tetanus/diphtheria/pertussis, acel(Tdap) 03/20/13 tetanus-diphth toxoids (Td) adult/adol 11/26/02 zoster vaccine live 10/26/11 1Result Comment: [12/11/2013] See scanned document Procedures Procedure Date Related Diagnosis Body Site Collection of venous blood by venipuncture 05/20/15 Colonoscopy 2009 Appendectomy 2003 [facility] - Total abdominal hysterectomy and 2003 bilateral salpingo-oophorectomy Biopsy of breast 1998 Hospitalized for nephrosis as a child Social History Social History Type Response Smoking Status Never smoker Assessment and Plan Extracted from: Title: Ambulatory Patient Education Author: Ramy Roger MD Date: Family Medicine Heart Disease Prevention Heart disease is a leading cause of . There are many things you can do to help prevent heart disease. BE PHYSICALLY ACTIVE Physical activity is good for your heart. It helps control your blood pressure, cholesterol levels, and weight. Try to be physically active every day. Ask your health care provider what activities are best for you. BE A HEALTHY WEIGHT Extra weight can strain your heart and affect your blood pressure and cholesterol levels. Lose weight with diet and exercise if recommended by your health care provider. EAT HEART-HEALTHY FOODS Follow a healthy eating plan as recommended by your health care provider or dietitian. Heart-healthy foods include: High-fiber foods. These include oat bran, oatmeal, and whole-grain breads and cereals. Fruits and vegetables. Avoid: Alcohol. Fried foods. Foods high in saturated fat. These include meats, butter, whole dairy products, shortening, and coconut or palm oil. Salty foods. These include canned food, luncheon meat, salty snacks, and fast food. KEEP YOUR CHOLESTEROL LEVELS UNDER CONTROL Cholesterol is a substance that is used for many important functions. When your cholesterol levels are high, cholesterol can stick to the insides of your blood vessels, making them narrow or clog. This can lead to chest pain (angina) and a heart attack. Keep your cholesterol levels under control as recommended by your health care provider. Have your cholesterol checked at least once a year. Target cholesterol levels (in mg/dL) for most people are: Total cholesterol below 200. LDL cholesterol below 100. HDL cholesterol above 40 in men and above 50 in women. Triglycerides below 150. KEEP YOUR BLOOD PRESSURE UNDER CONTROL Having high blood pressure (hypertension) puts you at risk for stroke and other forms of heart disease. Keep your blood pressure under control as recommended by your health care provider. DO NOT USE TOBACCO PRODUCTS Tobacco smoke can damage your heart and blood vessels. Do not use any tobacco products including cigarettes, chewing tobacco, or electronic cigarettes. If you need help quitting, ask your health care provider. TAKE MEDICINES DIRECTED Take medicines only as directed by your health care provider. Ask your health care provider whether you should take an aspirin every day. Taking aspirin can help reduce your risk of heart disease and stroke. FOR MORE INFORMATION To find out more about heart disease, visit the [place] [employer]'s website at www.americanheart.org This information is not intended to replace advice given to you by your health care provider. Make sure you discuss any questions you have with your health care provider. Document Released: 10/19/2004 Document Revised: 12/24/2014 Document Reviewed: ExitCare Patient Information 2015 [facility]. Preventive Medicine Health Maintenance Adopting a healthy lifestyle and getting preventive care can go a long way to promote health and wellness. Talk with your health care provider about what schedule of regular examinations is right for you. This is a good chance for you to check in with your provider about disease prevention and staying healthy. In between checkups, there are plenty of things you can do on your own. Experts have done a lot of research about which lifestyle changes and preventive measures are most likely to keep you healthy. Ask your health care provider for more information. WEIGHT AND DIET Eat a healthy diet Be sure to include plenty of vegetables, fruits, low-fat dairy products, and lean protein. Do not eat a lot of foods high in solid fats, added sugars, or salt. Get regular exercise. This is one of the most important things you can do for your health. Most adults should exercise for at least 150 minutes each week. The exercise should increase your heart rate and make you sweat (moderate-intensity exercise). Most adults should also do strengthening exercises at least twice a week. This is in addition to the moderate-intensity exercise. Maintain a healthy weight Body mass index (BMI) is a measurement that can be used to identify possible weight problems. It estimates body fat based on height and weight. Your health care provider can help determine your BMI and help you achieve or maintain a healthy weight. For females 20 years of age and older: A BMI below 18.5 is considered underweight. A BMI of 18.5 to 24.9 is normal. A BMI of 25 to 29.9 is considered overweight. A BMI of 30 and above is considered obese. Watch levels of cholesterol and blood lipids You should start having your blood tested for lipids and cholesterol at 20 years of age, then have this test every 5 years. You may need to have your cholesterol levels checked more often if: Your lipid or cholesterol levels are high. You are older than 50 years of age. You are at high risk for heart disease. CANCER SCREENING Lung Cancer Lung cancer screening is recommended for adults 5580 years old who are at high risk for lung cancer because of a history of smoking. A yearly low-dose CT scan of the lungs is recommended for people who: Currently smoke. Have quit within the past 15 years. Have at least a 85-dame-drna history of smoking. A pack year is smoking an average of one pack of cigarettes a day for 1 year. Yearly screening should continue until it has been 15 years since you quit. Yearly screening should stop if you develop a health problem that would prevent you from having lung cancer treatment. Breast Cancer Practice breast self-awareness. This means understanding how your breasts normally appear and feel. It also means doing regular breast self-exams. Let your health care provider know about any changes, no matter how small. If you are in your 20s or 30s, you should have a clinical breast exam ( CBE) by a health care provider every 13 years as part of a regular health exam. If you are 40 or older, have a CBE every year. Also consider having a breast X-ray (mammogram) every year. If you have a family history of breast cancer, talk to your health care provider about genetic screening. If you are at high risk for breast cancer, talk to your health care provider about having an MRI and a mammogram every year. Breast cancer gene (BRCA) assessment is recommended for women who have family members with BRCA-related cancers. BRCA-related cancers include: Breast. Ovarian. Tubal. Peritoneal cancers. Results of the assessment will determine the need for genetic counseling and BRCA1 and BRCA2 testing. Cervical Cancer Your health care provider may recommend that you be screened regularly for cancer of the pelvic organs (ovaries, uterus, and vagina). This screening involves a pelvic examination, including checking for microscopic changes to the surface of your cervix (Pap test). You may be encouraged to have this screening done every 3 years, beginning at age 21. For women ages 3065, health care providers may recommend pelvic exams and Pap testing every 3 years, or they may recommend the Pap and pelvic exam, combined with testing for human papilloma virus (HPV), every 5 years. Some types of HPV increase your risk of cervical cancer. Testing for HPV may also be done on women of any age with unclear Pap test results. Other health care providers may not recommend any screening for non women who are considered low risk for pelvic cancer and who do not have symptoms. Ask your health care provider if a screening pelvic exam is right for you. If you have had past treatment for cervical cancer or a condition that could lead to cancer, you need Pap tests and screening for cancer for at least 20 years after your treatment. If Pap tests have been discontinued, your risk factors (such as having a new sexual partner) need to be reassessed to determine if screening should resume. Some women have medical problems that increase the chance of getting cervical cancer. In these cases, your health care provider may recommend more frequent screening and Pap tests. Colorectal Cancer This type of cancer can be detected and often prevented. Routine colorectal cancer screening usually begins at 50 years of age and continues through 75 years of age. Your health care provider may recommend screening at an earlier age if you have risk factors for colon cancer. Your health care provider may also recommend using home test kits to check for hidden blood in the stool. A small camera at the end of a tube can be used to examine your colon directly (sigmoidoscopy or colonoscopy). This is done to check for the earliest forms of colorectal cancer. Routine screening usually begins at age 50. Direct examination of the colon should be repeated every 510 years through 75 years of age. However, you may need to be screened more often if early forms of precancerous polyps or small growths are found. Skin Cancer Check your skin from head to toe regularly. Tell your health care provider about any new moles or changes in moles, especially if there is a change in a mole's shape or color. Also tell your health care provider if you have a mole that is larger than the size of a pencil eraser. Always use sunscreen. Apply sunscreen liberally and repeatedly throughout the day. Protect yourself by wearing long sleeves, pants, a wide-brimmed hat, and sunglasses whenever you are outside. HEART DISEASE, DIABETES, AND HIGH BLOOD PRESSURE Have your blood pressure checked at least every 12 years. High blood pressure causes heart disease and increases the risk of stroke. If you are between 55 years and 79 years old, ask your health care provider if you should take aspirin to prevent strokes. Have regular diabetes screenings. This involves taking a blood sample to check your fasting blood sugar level. If you are at a normal weight and have a low risk for diabetes, have this test once every three years after 45 years of age. If you are overweight and have a high risk for diabetes, consider being tested at a younger age or more often. PREVENTING INFECTION Hepatitis B If you have a higher risk for hepatitis B, you should be screened for this virus. You are considered at high risk for hepatitis B if: You were born in a country where hepatitis B is common. Ask your health care provider which countries are considered high risk. Your parents were born in a high-risk country, and you have not been immunized against hepatitis B (hepatitis B vaccine). You have HIV or AIDS. You use needles to inject street drugs. You live with someone who has hepatitis B. You have had sex with someone who has hepatitis B. You get hemodialysis treatment. You take certain medicines for conditions, including cancer, organ transplantation, and autoimmune conditions. Hepatitis C Blood testing is recommended for: Everyone born from 1945 through 1965. Anyone with known risk factors for hepatitis C. Sexually transmitted infections (STIs) You should be screened for sexually transmitted infections (STIs) including gonorrhea and chlamydia if: You are sexually active and are younger than 24 years of age. You are older than 24 years of age and your health care provider tells you that you are at risk for this type of infection. Your sexual activity has changed since you were last screened and you are at an increased risk for chlamydia or gonorrhea. Ask your health care provider if you are at risk. If you do not have HIV, but are at risk, it may be recommended that you take a prescription medicine daily to prevent HIV infection. This is called pre- exposure prophylaxis (PrEP). You are considered at risk if: You are sexually active and do not regularly use condoms or know the HIV status of your partner(s). You take drugs by injection. You are sexually active with a partner who has HIV. Talk with your health care provider about whether you are at high risk of being infected with HIV. If you choose to begin PrEP, you should first be tested for HIV. You should then be tested every 3 months for as long as you are taking PrEP. If you are premenopausal and you may become , ask your health care provider about preconception counseling. If you may become , take 400 to 800 micrograms (mcg) of folic acid every day. If you want to prevent , talk to your health care provider about control (contraception). OSTEOPOROSIS AND MENOPAUSE Osteoporosis is a disease in which the bones lose minerals and strength with aging. This can result in serious bone fractures. Your risk for osteoporosis can be identified using a bone density scan. If you are 65 years of age or older, or if you are at risk for osteoporosis and fractures, ask your health care provider if you should be screened. Ask your health care provider whether you should take a calcium or vitamin D supplement to lower your risk for osteoporosis. Menopause may have certain physical symptoms and risks. Hormone replacement therapy may reduce some of these symptoms and risks. Talk to your health care provider about whether hormone replacement therapy is right for you. HOME CARE INSTRUCTIONS Schedule regular health, dental, and eye exams. Stay current with your immunizations. Do not use any tobacco products including cigarettes, chewing tobacco, or electronic cigarettes. If you are , do not drink alcohol. If you are , limit how much and how often you drink alcohol. Limit alcohol intake to no more than 1 drink per day for non women. One drink equals 12 ounces of beer, 5 ounces of wine, or 1 ounces of hard liquor. Do not use street drugs. Do not share needles. Ask your health care provider for help if you need support or information about quitting drugs. Tell your health care provider if you often feel depressed. Tell your health care provider if you have ever been abused or do not feel safe at home. This information is not intended to replace advice given to you by your health care provider. Make sure you discuss any questions you have with your health care provider. Document Released: 09/20/2011 Document Revised: 12/24/2014 Document Reviewed: [facility] Patient Information 2015 [employer]. No follow up information was provided. Extracted from: Title: Female Physical Author: Ramy Roger MD Date: 05/20/15 Impression and Plan Diagnosis Gastroesophageal reflux disease (XUT64-AJ K21.9, Working, Medical). Hyperlipidemia (FUV44-FX E78.5, Working, Medical). Hypertension (BII54-YJ I10, Working, Medical). Impaired fasting blood sugar (ZCO84-WJ R73.01, Working, Medical). MIRELLA (obstructive sleep apnea) (SME44-PV G47.33, Working, Medical). Metabolic syndrome (FKN56-WT E88.81, Working, Medical). Acute lower UTI (ZNK40-OD N39.0, Working, Medical). Mixed stress and urge urinary incontinence (JBE98-OJ N39.46, Working, Medical). Well adult exam (CZG48-MU Z00.00, Working, Medical). Visit for screening mammogram (DHX92-LJ Z12.31, Working, Medical). Plan: 1) Healthy diet and daily exercise helps most things. 2) Fasting lab today. 3) Continue your current meds. 4) Take the Cephalexin as directed. 5) See me in 6 months and as needed. 6) Schedule mammograms sometime in the next year. . Orders Orders (Selected) Outpatient Orders Ordered Periodic Comp Preventive Med 40 to 64 years Est 57881: Future (On Hold) CBC w/ Differential: CMP: Fasting Lipid Profile: Hgb A1c: Mammogram Routine Screening Bilat: Routine Urinalysis: Prescriptions Prescribed cephalexin 500 mg oral capsule: 500 mg=1 caps, Oral, TID, for 7 days, 21 caps, 0 Refill(s). 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, Well adult exam | Gastroesophageal reflux disease | Hypertension | Hyperlipidemia Diagnosis: Impaired fasting blood sugar Comment: Diagnosis: Metabolic syndrome Comment: Diagnosis: Mixed stress and urge urinary incontinence Comment: Diagnosis: MIRELLA (obstructive sleep apnea) Comment: Diagnosis: Visit for screening mammogram Comment: Diagnosis: Well adult exam Comment: Ordered: Periodic Comp Preventive Med 40 to 64 years Est 16763; 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, Well adult exam | Gastroesophageal reflux disease | Hypertension | Hyperlipidemia Diagnosis: Well adult exam Comment: Diagnosis: Acute lower UTI Comment: Diagnosis: Hypertension Comment: Diagnosis: Well adult exam Comment: Diagnosis: Mixed stress and urge urinary incontinence Comment: Diagnosis: Acute lower UTI Comment: Diagnosis: Well adult exam Comment: Diagnosis: Metabolic syndrome Comment: Diagnosis: Impaired fasting blood sugar Comment: Diagnosis: Well adult exam Comment: Diagnosis: Metabolic syndrome Comment: Diagnosis: Hypertension Comment: Diagnosis: Hyperlipidemia Comment: Diagnosis: Well adult exam Comment: Diagnosis: Visit for screening mammogram Comment: Diagnosis: Well adult exam Comment: Diagnosis: Metabolic syndrome Comment: Diagnosis: Hyperlipidemia Comment: Additional Orders: Comment: Ordered: cephalexin 500 mg oral capsule,500 mg 1 caps, Oral, TID, X 7 days, # 21 caps, 0 Refill(s), [id number], 1 caps Oral TID,x7 days End of Orders ."
--- OUTSIDE RECORDS SUMMARY | 2016-06-03 02:33 | XMS REPORT | Referral Summary ---
Author Author Via [facility], [facility] Medicine Organization Via [facility] Address Unknown Phone Unavailable Care Team Providers Care Woodenware Assembler Name Role Phone Azalia Roger Primary Care Physician [phone] Encounter VC Date(s): 08/19/14 - 08/19/14 [facility], [address] [place] [address] Discharge Disposition: 01-Home or Self Care Attending Physician: Ramy Roger MD Admitting Physician: Ramy Roger MD Vital Signs Most recent to 1 oldest [Reference Range]: Temperature Tympanic 35.3 degC [36.6-38.1 degC] *LOW* (08/19/14 2:44 PM) Peripheral Pulse 62 bpm Rate [60-100 bpm] (08/19/14 2:44 PM) Respiratory Rate 16 br/min [14-20 br/min] (08/19/14 2:44 PM) Blood Pressure 128/72 mmHg [90-140/60-90 mmHg] (08/19/14 2:44 PM) SpO2 95 % (08/19/14 2:44 PM) Problem List Condition Effective Dates Status [...] DAILY, # 90 tabs, 3 Refill(s), eRx: [facility], TAKE ONE TABLET BY MOUTH ONCE DAILY Start Date: 05/16/14 Status: Ordered biotin 5 mg, Oral, Daily, 0 Refill(s) Start Date: 09/03/13 Status: Ordered Cranberry oral capsule 500 mg oral route daiy, 0 Refill(s) Start Date: 09/10/13 Status: Ordered estradiol 2 mg oral tablet 1 mg 0.5 tabs, Oral, Daily, # 45 tabs, 3 Refill(s), Pharmacy: [place] [id number], 0.5 tabs Oral Daily Start Date: 11/11/14 Status: Ordered flax oral capsule 1 caps, Oral, Daily, 0 Refill(s) Start Date: 09/10/13 Status: Ordered losartan-hydrochlorothiazide 100 mg-25 mg oral tablet See Instructions, TAKE ONE TABLET BY MOUTH ONCE DAILY FOR BLOOD PRESSURE, # 90 tabs, 2 Refill(s), eRx: [facility], TAKE ONE TABLET BY MOUTH ONCE DAILY FOR BLOOD PRESSURE Start Date: 07/04/14 Status: Ordered lovastatin 40 mg oral tablet See Instructions, TAKE ONE TABLET BY MOUTH AT BEDTIME, # 90 tabs, 1 Refill(s), eRx: [id number], TAKE ONE TABLET BY MOUTH AT BEDTIME [...] DAILY. , # 15 unknown unit, [facility], APPLY A THIN LAYER TOPICALLY [...] Author: Ramy Roger MD Date: Family Medicine Acute Bronchitis Bronchitis is inflammation of the airways that extend from the windpipe into the lungs (bronchi ). The inflammation often causes mucus to develop. This leads to a cough, which is the most common symptom of bronchitis. In acute bronchitis, the condition usually develops suddenly and goes away over time, usually in a couple weeks. Smoking, allergies, and asthma can make bronchitis worse. Repeated episodes of bronchitis may cause further lung problems. CAUSES Acute bronchitis is most often caused by the same virus that causes a cold. The virus can spread from person to person (contagious ). SIGNS AND SYMPTOMS Cough. Fever. Coughing up mucus. Body aches. Chest congestion. Chills. Shortness of breath. Sore throat. DIAGNOSIS Acute bronchitis is usually diagnosed through a physical exam. Tests, such as chest X-rays, are sometimes done to rule out other conditions. TREATMENT Acute bronchitis usually goes away in a couple weeks. Often times, no medical treatment is necessary. Medicines are sometimes given for relief of fever or cough. Antibiotics are usually not needed but may be prescribed in certain situations. In some cases, an inhaler may be recommended to help reduce shortness of breath and control the cough. A cool mist vaporizer may also be used to help thin bronchial secretions and make it easier to clear the chest. HOME CARE INSTRUCTIONS Get plenty of rest. Drink enough fluids to keep your urine clear or pale yellow (unless you have a medical condition that requires fluid restriction). Increasing fluids may help thin your secretions and will prevent dehydration. Only take whri-nau-rezizyc or prescription medicines as directed by your health care provider. Avoid smoking and secondhand smoke. Exposure to cigarette smoke or irritating chemicals will make bronchitis worse. If you are a smoker, consider using nicotine gum or skin patches to help control withdrawal symptoms. Quitting smoking will help your lungs heal faster. Reduce the chances of another bout of acute bronchitis by washing your hands frequently, avoiding people with cold symptoms, and trying not to touch your hands to your mouth, nose, or eyes. Follow up with your health care provider as directed. SEEK MEDICAL CARE IF: Your symptoms do not improve after 1 week of treatment. SEEK IMMEDIATE MEDICAL CARE IF: You develop an increased fever or chills. You have chest pain. You have severe shortness of breath. You have bloody sputum. You develop dehydration. You develop fainting. You develop repeated vomiting. You develop a severe headache. MAKE SURE YOU: Understand these instructions. Will watch your condition. Will get help right away if you are not doing well or get worse. Document Released: 04/14/2005 Document Revised: 11/07/2013 Document Reviewed: [facility] Patient Information 2014 [employer] [facility]. No follow up information was provided. Extracted from: Title: Male HTN Author: Ramy Roger MD Date: 08/19/14 Impression and Plan Diagnosis Acute bronchitis (ICD9 466.0, Working, Medical). GERD (ICD9 530.81, Working, Medical). Hyperlipidemia (ICD9 272.4, Working, Medical). Hypertension (ICD9 401.9, Working, Medical). MIRELLA (obstructive sleep apnea) (ICD9 327.23, Working, Medical). Plan: take the Azithromycin as directed. Use the Benzonatate as needed for coughing. Rest and humidity helps this also. , Skip the Lovastatin while you are taking the Azithromycin. . Orders Orders (Selected) Outpatient Orders Ordered Office Visit Level 4 Est 70167: Prescriptions Prescribed azithromycin 250 mg oral tablet: See Instructions, Take 2 tabs today, then 1 tab dailiy for 4 days., 6 tabs, 0 Refill(s) benzonatate 200 mg oral capsule: 200 mg=1 caps, Oral, TID, for 10 days, PRN: as needed for cough, 30 caps, 0 Refill(s). Dx/Order Association Plan: Diagnosis: Acute bronchitis Comment: Ordered: Office Visit Level 4 Est 75953; 08/19/14 15:35:00 CDT, Acute bronchitis | Hypertension | Hyperlipidemia | GERD | MIRELLA (obstructive sleep apnea) Diagnosis: GERD Comment: Ordered: Office Visit Level 4 Est [id number]; 08/19/14 15:35:00 CDT, Acute bronchitis | Hypertension | Hyperlipidemia | GERD | MIRELLA (obstructive sleep apnea) Diagnosis: Hyperlipidemia Comment: Ordered: Office Visit Level 4 Est [id number]; 08/19/14 15:35:00 CDT, Acute bronchitis | Hypertension | Hyperlipidemia | GERD | MIRELLA (obstructive sleep apnea) Diagnosis: Hypertension Comment: Ordered: Office Visit Level 4 Est 32031; 08/19/14 15:35:00 CDT, Acute bronchitis | Hypertension | Hyperlipidemia | GERD | MIRELLA (obstructive sleep apnea) Diagnosis: MIRELLA (obstructive sleep apnea) Comment: Ordered: Office Visit Level 4 Est [id number]; 08/19/14 15:35:00 CDT, Acute bronchitis | Hypertension | Hyperlipidemia | GERD | MIRELLA (obstructive sleep apnea) Additional Orders: Comment: Ordered: azithromycin 250 mg oral tablet,See Instructions, Take 2 tabs today, then 1 tab dailiy for 4 days., # 6 tabs, 0 Refill(s), Pharmacy: [facility], Take 2 tabs today, then 1 tab dailiy for 4 days. Ordered: benzonatate 200 mg oral capsule,200 mg 1 caps, Oral, TID, as needed for cough, X 10 days, # 30 caps, 0 Refill(s), [facility], 1 caps Oral TID,x10 days,PRN:as needed for cough End of Orders ."
--- OUTSIDE RECORDS SUMMARY | 2016-06-03 02:33 | XMS REPORT | Continuity of Care Document ---
Author Author [facility] Organization [facility] Address Unknown Phone Unavailable Allergies Medications Problems Procedures Results Encounters ACCT No. Visit Date/Time Discharge Status Pt. Type Provider Facility Loc./Unit Complaint [id number] 05/09/2013 18:11:00 05/09/2013 23 :59:59 CLS Outpatient
--- OUTSIDE RECORDS SUMMARY | 2016-06-03 02:33 | XMS REPORT | Referral Summary ---
Author Author [facility], [facility] Organization [facility] Address Unknown Phone Unavailable Care Team Providers Care Facs Teacher Name Role Phone Azalia Roger Primary Care Physician [phone] Encounter VC Date(s): 12/30/15 - 12/30/15 [facility], [address] [place] [address] Discharge Disposition: 01-Home or Self Care Attending Physician: Zeus Espinosa PA-C Admitting Physician: Zeus Espinosa PA-C Vital Signs Most recent to 1 oldest [Reference Range]: Temperature Tympanic 36.7 degC [36.6-38.1 degC] (12/30/15 5:25 PM) Peripheral Pulse 60 bpm Rate [60-100 bpm] (12/30/15 5:25 PM) Blood Pressure 126/80 mmHg [90-140/60-90 mmHg] (12/30/15 5:25 PM) SpO2 98 % (12/30/15 5:25 PM) Problem List Condition Effective Dates Status [...] DAILY, # 90 tabs, 2 Refill(s), eRx: [id number], TAKE ONE TABLET BY [...] Daily, # 45 tabs, 3 Refill(s), Pharmacy: [place] [address], 0.5 tabs Oral Daily Start Date: 11/11/14 Status: Ordered flax oral capsule 1 caps, Oral, Daily, 0 Refill(s) Start Date: 09/10/13 Status: Ordered losartan-hydrochlorothiazide 100 mg-25 mg oral tablet See Instructions, TAKE ONE TABLET BY MOUTH ONCE DAILY FOR BLOOD PRESSURE, # 90 tabs, 3 Refill(s), eRx: [id number], TAKE ONE TABLET BY MOUTH ONCE DAILY FOR BLOOD PRESSURE Start Date: 06/16/15 Status: Ordered lovastatin 40 mg oral tablet See Instructions, TAKE ONE TABLET BY MOUTH AT BEDTIME, # 90 tabs, 3 Refill(s), eRx: [id number], TAKE ONE TABLET BY [...] DAILY. , # 15 unknown unit, eRx: [facility], APPLY A THIN LAYER [...] Related Diagnosis Body Site Colonoscopy 2009 Appendectomy 2003 [facility] - Total abdominal hysterectomy and 2004 bilateral salpingo-oophorectomy Biopsy of breast 1998 Hospitalized for nephrosis as a child Social History Social History Type Response Smoking Status Never smoker Assessment and Plan No data available for this section
--- OUTSIDE RECORDS SUMMARY | 2016-06-03 02:34 | XMS REPORT | Referral Summary ---
Author Author [facility], [facility] Organization [facility] Address Unknown Phone Unavailable Care Team Providers Care Speeder Worker Name Role Phone Azalia Roger Primary Care Physician [phone] Encounter Date(s): 01/06/16 - 01/06/16 [facility] [address] [place] [address]- Discharge Diagnosis: Hyperlipidemia Discharge Diagnosis: Metabolic syndrome Discharge Diagnosis: Hypertension Discharge Diagnosis: Impaired fasting blood sugar Discharge Diagnosis: Abscess of umbilicus Discharge Disposition: 01-Home or Self Care Attending Physician: Ramy Roger MD Admitting Physician: Ramy Roger MD Vital Signs Most recent to 1 oldest [Reference Range]: Temperature Tympanic 36.7 degC [36.6-38.1 degC] (01/06/16 10:03 AM) Peripheral Pulse 68 bpm Rate [60-100 bpm] (01/06/16 10:03 AM) Blood Pressure 116/70 mmHg [90-140/60-90 mmHg] (01/06/16 10:03 AM) Problem List Condition Effective Dates Status Health Status Informant Acute Active bronchitis(Confirmed ) Acute lower Active UTI(Confirmed) Visit for screening Active mammogram(Confirmed) Cellulitis of Active nostril(Confirmed) Chicken Active pox(Confirmed) Foot pain, Active left(Confirmed) GERD(Confirmed) Resolved Hand paresthesia - Active both hands(Confirmed) High 2000 Active cholesterol(Confirme d) Hypertension(Confirm Active ed) Impaired fasting Active blood sugar(Confirmed) Kidney disease Active childhood(Confirmed) Kidney stones Active childhood(Confirmed) Well adult Active exam(Confirmed) Metabolic Active syndrome(Confirmed) Hyperlipidemia(Confi Active rmed) Need for influenza Active vaccination(Confirme d) Nephrosis [...] DAILY, # 90 tabs, 2 Refill(s), eRx: [facility], TAKE ONE TABLET BY MOUTH ONCE DAILY Start Date: 08/19/15 Status: Ordered biotin 5 mg, Oral, Daily, 0 Refill(s) Start Date: 09/03/13 Status: Ordered Cranberry oral capsule 500 mg oral route daiy, 0 Refill(s) Start Date: 09/10/13 Status: Ordered estradiol 2 mg oral tablet 1 mg 0.5 tabs, Oral, q2Days, # 45 tabs, 3 Refill(s), Pharmacy: [place] [id number], 0.5 tabs Oral Daily Start Date: 11/11/14 Status: Ordered flax oral capsule 1 caps, Oral, Daily, 0 Refill(s) Start Date: 09/10/13 Status: Ordered losartan-hydrochlorothiazide 100 mg-25 mg oral tablet See Instructions, TAKE ONE TABLET BY MOUTH ONCE DAILY FOR BLOOD PRESSURE, # 90 tabs, 3 Refill(s), eRx: [facility], TAKE ONE TABLET BY MOUTH ONCE DAILY FOR BLOOD PRESSURE Start Date: 06/16/15 Status: Ordered lovastatin 40 mg oral tablet See Instructions, TAKE ONE TABLET BY MOUTH AT BEDTIME, # 90 tabs, 3 Refill(s), eRx: [facility], TAKE ONE TABLET BY MOUTH AT BEDTIME [...] DAILY. , # 15 unknown unit, eRx: [facility], APPLY A THIN LAYER [...] Diagnosis Body Site Colonoscopy 2009 Appendectomy 2003 [facility] BSO - Total abdominal hysterectomy and 2003 bilateral salpingo-oophorectomy Biopsy of breast 1998 Hospitalized for nephrosis as a child Social History Social History Type Response Smoking Status Never smoker Assessment and Plan Extracted from: Title: Ambulatory Patient Education Author: Ramy Roger MD Date: Obstetrics and Gynecology Abscess An abscess is an infected area that contains a collection of pus and debris. It can occur in almost any part of the body. An abscess is also known as a furuncle or boil. CAUSES An abscess occurs when tissue gets infected. This can occur from blockage of oil or sweat glands, infection of hair follicles, or a minor injury to the skin. As the body tries to fight the infection, pus collects in the area and creates pressure under the skin. This pressure causes pain. People with weakened immune systems have difficulty fighting infections and get certain abscesses more often. SYMPTOMS Usually an abscess develops on the skin and becomes a painful mass that is red, warm, and tender. If the abscess forms under the skin, you may feel a moveable soft area under the skin. Some abscesses break open (rupture) on their own, but most will continue to get worse without care. The infection can spread deeper into the body and eventually into the bloodstream, causing you to feel ill. DIAGNOSIS Your caregiver will take your medical history and perform a physical exam. A sample of fluid may also be taken from the abscess to determine what is causing your infection. TREATMENT Your caregiver may prescribe antibiotic medicines to fight the infection. However, taking antibiotics alone usually does not cure an abscess. Your caregiver may need to make a small cut (incision) in the abscess to drain the pus. In some cases, gauze is packed into the abscess to reduce pain and to continue draining the area. HOME CARE INSTRUCTIONS Only take [id number] or prescription medicines for pain, discomfort , or fever as directed by your caregiver. If you were prescribed antibiotics, take them as directed. Finish them even if you start to feel better. If gauze is used, follow your caregiver's directions for changing the gauze. To avoid spreading the infection: Keep your draining abscess covered with a bandage. Wash your hands well. Do not share personal care items, towels, or whirlpools with others. Avoid skin contact with others. Keep your skin and clothes clean around the abscess. Keep all follow-up appointments as directed by your caregiver. SEEK MEDICAL CARE IF: You have increased pain, swelling, redness, fluid drainage, or bleeding. You have muscle aches, chills, or a general ill feeling. You have a fever. MAKE SURE YOU: Understand these instructions. Will watch your condition. Will get help right away if you are not doing well or get worse. This information is not intended to replace advice given to you by your health care provider. Make sure you discuss any questions you have with your health care provider. Document Released: 12/15/2005 Document Revised: 09/05/2012 Document Reviewed: [employer] Patient Education 2016 [employer] No follow up information was provided. Extracted from: Title: several problems Author: Ramy Roger MD Date: 01/06/16 Impression and Plan Diagnosis Abscess of umbilicus (UFQ43-BG L02.216, Discharge, Medical). Hyperlipidemia (TFV99-EU E78.2, Discharge, Medical). Hypertension (ASM17-FA I10, Discharge, Medical). Impaired fasting blood sugar (NWJ64-YI R73.01, Discharge, Medical). Metabolic syndrome (PLA91-ZD E88.81, Discharge, Medical). Plan: 1) Lab ordered today. 2) Continue your present meds. 3) Use MIRA to the umbilicus daily for several more days. 4) See me in 6 months for your physical, and as needed.. Orders Orders (Selected) Outpatient Orders Ordered Office Visit Level 4 Est 69971: Future (On Hold) Hgb A1c: . Dx/Order Association Plan: Diagnosis: Abscess of umbilicus Comment: Ordered: Office Visit Level 4 Est 12821; 01/06/16 10:21:00 CDT, Abscess of umbilicus | Metabolic syndrome | Impaired fasting blood sugar | Hypertension | Hyperlipidemia Diagnosis: Hyperlipidemia Comment: Ordered: Office Visit Level 4 Est 16616; 01/06/16 10:21:00 CDT, Abscess of umbilicus | Metabolic syndrome | Impaired fasting blood sugar | Hypertension | Hyperlipidemia Diagnosis: Hypertension Comment: Ordered: Office Visit Level 4 Est 94694; 01/06/16 10:21:00 CDT, Abscess of umbilicus | Metabolic syndrome | Impaired fasting blood sugar | Hypertension | Hyperlipidemia Diagnosis: Impaired fasting blood sugar Comment: Ordered: Office Visit Level 4 Est 19132; 01/06/16 10:21:00 CDT, Abscess of umbilicus | Metabolic syndrome | Impaired fasting blood sugar | Hypertension | Hyperlipidemia Diagnosis: Metabolic syndrome Comment: Ordered: Office Visit Level 4 Est 36258; 01/06/16 10:21:00 CDT, Abscess of umbilicus | Metabolic syndrome | Impaired fasting blood sugar | Hypertension | Hyperlipidemia Diagnosis: Metabolic syndrome Comment: Diagnosis: Impaired fasting blood sugar Comment: End of Orders ."
--- OUTSIDE RECORDS SUMMARY | 2016-06-03 02:34 | XMS REPORT | Referral Summary ---
Author Author [facility], [facility] Medicine Organization [facility] Address Unknown Phone Unavailable Care Team Providers Care Item Repair Manager Name Role Phone Azalia Roger Primary Care Physician [phone] Encounter VC Date(s): 11/11/14 - 11/11/14 [facility] [address] [place] [id number] Discharge Disposition: 01-Home or Self Care Attending Physician: Ramy Roger MD Admitting Physician: Ramy Roger MD Vital Signs Most recent to 1 oldest [Reference Range]: Temperature Tympanic 36.5 degC [36.6-38.1 degC] *LOW* (11/11/14 10:03 AM) Peripheral Pulse 64 bpm Rate [60-100 bpm] (11/11/14 10:03 AM) Blood Pressure 138/82 mmHg [90-140/60-90 mmHg] (11/11/14 10:03 AM) SpO2 98 % (11/11/14 10:03 AM) Problem List Condition Effective Dates [...] DAILY, # 90 tabs, 3 Refill(s), eRx: [place] [facility] [id number], TAKE ONE TABLET BY MOUTH ONCE DAILY Start Date: 05/16/14 Status: Ordered biotin 5 mg, Oral, Daily, 0 Refill(s) Start Date: 09/03/13 Status: Ordered cephalexin 500 mg oral capsule 500 mg 1 caps, Oral, TID, X 7 days, # 21 caps, 0 Refill(s), Pharmacy: [facility] [id number], 1 caps Oral TID,x7 days Start Date: 05/20/15 Stop Date: 05/27/15 Status: Ordered Cranberry oral capsule 500 mg oral route daiy, 0 Refill(s) Start Date: 09/10/13 Status: Ordered estradiol 2 mg oral tablet 1 mg 0.5 tabs, Oral, Daily, # 45 tabs, 3 Refill(s), Pharmacy: [facility] [id number], 0.5 tabs Oral Daily Start Date: 11/11/14 Status: Ordered flax oral capsule 1 caps, Oral, Daily, 0 Refill(s) Start Date: 09/10/13 Status: Ordered losartan-hydrochlorothiazide 100 mg-25 mg oral tablet See Instructions, TAKE ONE TABLET BY MOUTH ONCE DAILY FOR BLOOD PRESSURE, # 90 tabs, eRx: [facility], TAKE ONE TABLET BY MOUTH ONCE DAILY FOR BLOOD PRESSURE Start Date: 03/18/15 Status: Ordered lovastatin 40 mg oral tablet See Instructions, TAKE ONE TABLET BY MOUTH AT BEDTIME, # 90 tabs, eRx: [facility], TAKE ONE TABLET BY MOUTH AT BEDTIME Start Date: 03/31/15 Status: Ordered Metamucil 525 mg oral capsule 1 caps, Oral, Daily, as needed for constipation, # 100 caps, 0 Refill(s) Start Date: 09/10/13 Status: Ordered multivitamin 1 tablet, Oral, Daily, 0 Refill(s) Start Date: 6/16/14 Status: Ordered omeprazole 20 mg oral delayed release capsule 1 caps, Oral, Daily, 0 Refill(s) Start Date: 09/03/13 Status: Ordered triamcinolone 0.1% topical cream See Instructions, APPLY A THIN LAYER TOPICALLY TO AFFECTED AREA(S) TWICE DAILY. , # 15 unknown unit, eRx: [id number], APPLY A THIN LAYER TOPICALLY [...] Patient Education Author: Ramy Roger MD Date: 11/11 Family Medicine Plantar Fasciitis Plantar fasciitis is a common condition that causes foot pain. It is soreness ( inflammation) of the band of tough fibrous tissue on the bottom of the foot that runs from the heel bone (calcaneus) to the ball of the foot. The cause of this soreness may be from excessive standing, poor fitting shoes, running on hard surfaces, being overweight, having an abnormal walk, or overuse (this is common in runners) of the painful foot or feet. It is also common in aerobic exercise dancers and ballet dancers. SYMPTOMS Most people with plantar fasciitis complain of: Severe pain in the morning on the bottom of their foot especially when taking the first steps out of bed. This pain recedes after a few minutes of walking. Severe pain is experienced also during walking following a long period of inactivity. Pain is worse when walking barefoot or up stairs DIAGNOSIS Your caregiver will diagnose this condition by examining and feeling your foot. Special tests such as X-rays of your foot, are usually not needed. PREVENTION Consult a sports medicine professional before beginning a new exercise program. Walking programs offer a good workout. With walking there is a lower chance of overuse injuries common to runners. There is less impact and less jarring of the joints. Begin all new exercise programs slowly. If problems or pain develop, decrease the amount of time or distance until you are at a comfortable level. Wear good shoes and replace them regularly. Stretch your foot and the heel cords at the back of the ankle (Achilles tendon) both before and after exercise. Run or exercise on even surfaces that are not hard. For example, asphalt is better than pavement. Do not run barefoot on hard surfaces. If using a treadmill, vary the incline. Do not continue to workout if you have foot or joint problems. Seek professional help if they do not improve. HOME CARE INSTRUCTIONS Avoid activities that cause you pain until you recover. Use ice or cold packs on the problem or painful areas after working out. Only take [id number] or prescription medicines for pain, discomfort, or fever as directed by your caregiver. Soft shoe inserts or athletic shoes with air or gel sole cushions may be helpful. If problems continue or become more severe, consult a sports medicine caregiver or your own health care provider. Cortisone is a potent anti- inflammatory medication that may be injected into the painful area. You can discuss this treatment with your caregiver. MAKE SURE YOU: Understand these instructions. Will watch your condition. Will get help right away if you are not doing well or get worse. Document Released: 11/30/2001 Document Revised: 05/29/2012 Document Reviewed: [employer] Patient Information 2015 [employer] This information is not intended to replace advice given to you by your health care provider. Make sure you discuss any questions you have with your health care provider. No follow up information was provided. Extracted from: Title: Hyperlipidemia, HTN Author: Ramy Roger MD Date: 11/11/14 Impression and Plan Diagnosis GERD (ICD9 530.81, Working, Medical). Hyperlipidemia (ICD9 272.4, Working, Medical). Hypertension (ICD9 401.9, Working, Medical). Need for hepatitis A and B vaccination (ICD9 V05.3, Working, Medical). Obstructive sleep apnea, adult (ICD9 327.23, Working, Medical). Plantar fasciitis of left foot (ICD9 728.71, Working, Medical). Plan: Continue your current meds, healthy diet and daily exercise. Continue your foot stretching and ice massage and arch supports. See me in 6 months for your physical and as needed. Twinrix (hepatitis A and B) #3 today. . Orders Orders (Selected) Outpatient Orders Ordered Office Visit Level 4 Est 91036: hepatitis A-hepatitis B vaccine: 0.5 mL, IntraMuscular, Once Prescriptions Prescribed estradiol 2 mg oral tablet: 1 mg=0.5 tabs, Oral, Daily, 45 tabs, 3 Refill(s). Dx/Order Association Plan: Diagnosis: GERD Comment: Ordered: Office Visit Level 4 Est 72933; 11/11/14 10:25:00 CDT, Hypertension | Hyperlipidemia | Obstructive sleep apnea, adult | Plantar fasciitis of left foot | GERD Diagnosis: Hyperlipidemia Comment: Ordered: Office Visit Level 4 Est [id number]; 11/11/14 10:25:00 CDT, Hypertension | Hyperlipidemia | Obstructive sleep apnea, adult | Plantar fasciitis of left foot | GERD Diagnosis: Hypertension Comment: Ordered: Office Visit Level 4 Est [id number]; 11/11/14 10:25:00 CDT, Hypertension | Hyperlipidemia | Obstructive sleep apnea, adult | Plantar fasciitis of left foot | GERD Diagnosis: Need for hepatitis A and B vaccination Comment: Ordered: hepatitis A-hepatitis B vaccine; 0.5 mL, IntraMuscular, Once, First Dose: 11/11/14 10:25:00 CDT, Stop Date: 11/11/14 10:25:00 CDT Office Visit Level 4 Est [id number]; 11/11/14 10:25:00 CDT, Hypertension | Hyperlipidemia | Obstructive sleep apnea, adult | Plantar fasciitis of left foot | GERD Diagnosis: Obstructive sleep apnea, adult Comment: Ordered: Office Visit Level 4 Est [id number]; 11/11/14 10:25:00 CDT, Hypertension | Hyperlipidemia | Obstructive sleep apnea, adult | Plantar fasciitis of left foot | GERD Diagnosis: Plantar fasciitis of left foot Comment: Ordered: Office Visit Level 4 Est [id number]; 11/11/14 10:25:00 CDT, Hypertension | Hyperlipidemia | Obstructive sleep apnea, adult | Plantar fasciitis of left foot | GERD Additional Orders: Comment: Ordered: estradiol 2 mg oral tablet,1 mg 0.5 tabs, Oral, Daily, # 45 tabs, 3 Refill(s), Pharmacy: [facility], 0.5 tabs Oral Daily End of Orders ."
--- OUTSIDE RECORDS SUMMARY | 2016-06-03 02:34 | XMS REPORT | Referral Summary ---
Author Organization Unknown Address Unknown Phone Unavailable Care Team Providers Care Medical Coordinator Pesticide Use Name Role Phone Azalia Roger Primary Care Physician [phone] Encounter VC Date(s): 05/07/14 - 05/07/14 Via LUCAS Yanez, [place], [address] [place], [place] [id number] Discharge Diagnosis: Need for hepatitis A and B vaccination Discharge Diagnosis: Impaired fasting blood sugar Discharge Diagnosis: Hypertension Discharge Diagnosis: MIRELLA (obstructive sleep apnea) Discharge Diagnosis: Well adult exam Discharge Diagnosis: Plantar fasciitis, left Discharge Diagnosis: GERD Discharge Diagnosis: Hyperlipidemia Discharge Diagnosis: Metabolic syndrome Discharge Diagnosis: Visit for screening mammogram Discharge Disposition: Home or Self Care Attending Physician: Ramy Roger MD Admitting Physician: Ramy Roger MD Vital Signs Most recent to 1 oldest [Reference Range]: Temperature Tympanic 36.4 degC [36.6-38.1 degC] *LOW* (05/07/14 9:10 AM) Peripheral Pulse 60 bpm Rate [60-100 bpm] (05/07/14 9:10 AM) Blood Pressure 142/76 mmHg [90-140/60-90 mmHg] *HI* (05/07/14 9:10 AM) Problem List Condition Effective Dates Status Health Status Informant Visit for screening Active mammogram(Confirmed) Chicken Active pox(Confirmed) Foot pain, Active left(Confirmed) GERD(Confirmed) Resolved Hand paresthesia - Active both hands(Confirmed) High 2000 Active cholesterol(Confirme d) Hyperlipidemia(Confi Resolved rmed) Hypertension(Confirm Resolved ed) Impaired fasting Active blood sugar(Confirmed) Kidney [...] Adverse Reactions, Alerts Substance Reaction Severity Status fluconazole diarrhea Moderate Active lisinopril cough Active Medications atenolol 100 mg oral tablet See Instructions, TAKE ONE TABLET BY MOUTH EVERY DAY, # 90 tabs, eRx: [place] [id number], TAKE ONE TABLET BY MOUTH EVERY DAY Special Instructions: TAKE ONE TABLET BY MOUTH EVERY DAY Start Date: 02/18/14 Status: Ordered biotin 5 mg, Oral, Daily, 0 Refill(s) Start Date: 09/03/13 Status: Ordered Cranberry oral capsule 500 mg oral route daiy, 0 Refill(s) Special Instructions: 500 mg oral route daiy Start Date: 09/10/13 Status: Ordered estradiol 2 mg oral tablet See Instructions, TAKE ONE-HALF TABLET BY MOUTH EVERY OTHER DAY NEEDED, # 45 tabs, eRx: [place] [id number], TAKE ONE TABLET BY MOUTH EVERY OTHER DAY NEEDED Special Instructions: TAKE ONE-HALF TABLET BY MOUTH EVERY OTHER DAY NEEDED Start Date: 02/18/14 Status: Ordered flax oral capsule 1 caps, Oral, Daily, 0 Refill(s) Start Date: 09/10/13 Status: Ordered gabapentin 300 mg oral capsule See Instructions, 1 caps Oral Bedtime (once a day), # 30 caps, eRx: [place] [id number], 1 caps Oral Bedtime (once a day) Special Instructions: 1 caps Oral Bedtime (once a day) Start Date: 04/23/14 Status: Ordered losartan-hydrochlorothiazide 100 mg-25 mg oral tablet See Instructions, TAKE ONE TABLET BY MOUTH EVERY DAY FOR BLOOD PRESSURE, # 90 tabs, eRx: [place] [id number], TAKE ONE TABLET BY MOUTH EVERY DAY FOR BLOOD PRESSURE Special Instructions: TAKE ONE TABLET BY MOUTH EVERY DAY FOR BLOOD PRESSURE Start Date: 03/19/14 Status: Ordered lovastatin 40 mg oral tablet 1 tabs, Oral, Bedtime (once a day), 0 Refill(s) Start Date: 09/03/13 Status: Ordered Metamucil 525 mg oral capsule [...] DAILY. , # 15 unknown unit, eRx: [id number], APPLY A THIN LAYER TOPICALLY [...] to 1 oldest [Reference Range]: WBC [4.8-10.8 K/uL] 6.6 K/uL (05/07/14 10:23 AM) RBC [4.00-5.20 M/uL] 3.89 M/uL *LOW* (05/07/14 10:23 AM) Hgb [12.0-16.0 12.6 gm/dL gm/dL] (05/07/14 10:23 AM) Hct [37.0-47.0 %] 37.5 % (05/07/14 10:23 AM) MCV [82.0-99.0 fL] 96.4 fL (05/07/14 10:23 AM) MCH [27.0-32.0 pg] 32.4 pg *HI* (05/07/14 10:23 AM) MCHC [32.0-36.0 33.6 gm/dL gm/dL] (05/07/14 10:23 AM) RDW [11.5-14.5 %] 12.8 % (05/07/14 10:23 AM) Platelet [150-400 319 K/uL K/uL] (05/07/14 10:23 AM) MPV [8.8-14.8 fL] 10.1 fL (05/07/14 10:23 AM) Immature 0.2 % Granulocytes (05/07/14 AM) [0.0-1.0 %] Neutrophils [51-75 60 % %] (05/07/14 AM) Lymphocytes [20-46 25 % %] (05/07/14 AM) Monocytes [4-11 %] 10 % (05/07/14 AM) Eosinophils [0-4 %] 6 % *HI* (05/07/14 AM) Basophils [0-2 %] 1 % (05/07/14 AM) Neutro Absolute 3.95 THOUS [1.90-7.00 THOUS] (05/07/14 AM) Lymph Absolute 1.63 THOUS [0.80-3.30 THOUS] (05/07/14 AM) [place] Absolute 0.64 THOUS [0.30-1.00 THOUS] (05/07/14 AM) Eos Absolute 0.37 THOUS [0.00-0.50 THOUS] (05/07/14 AM) Baso Absolute 0.04 THOUS [0.00-0.20 THOUS] (05/07/14: AM) Chemistry Most recent to 1 oldest [Reference Range]: Sodium Lvl [135-144 141 mEq/L mEq/L] (05/07/14 AM) Potassium Lvl 4.0 mEq/L [3.5-5.2 mEq/L] (05/07/14 AM) Chloride [99-111 105 mEq/L mEq/L] (05/07/14 AM) CO2 [22-31 mEq/L] 23 mEq/L (05/07/14 AM) AGAP [3-20] 13 (05/07/14 AM) BUN [10-20 mg/dL] 13 mg/dL (05/07/14 AM) Glucose Lvl [70-99 104 mg/dL mg/dL] *HI* (05/07/14 AM) Creatinine Lvl 0.72 mg/dL [0.57-1.11 mg/dL] (05/07/14: AM) eGFR [>60 mL/min] >60 mL/min 2 (2/17/15 10:23 AM) Calcium Lvl 9.1 mg/dL [8.9-10.5 mg/dL] (05/07/14: AM) Albumin Lvl [3.4-4.8 4.2 gm/dL gm/dL] (05/07/14 AM) Total Protein 6.9 gm/dL [6.2-8.1 gm/dL] (05/07/14: AM) Globulin [1.8-4.0 2.7 gm/dL gm/dL] (05/07/14 AM) ALT [0-55 unit/L] 21 unit/L (05/07/14: AM) AST [5-34 unit/L] 25 unit/L 1 (05/07/14: AM) Alk Phos [40-150 74 unit/L unit/L] (05/07/14: AM) Bili Total [0.2-1.2 0.7 mg/dL mg/dL] (05/07/14: AM) Chol [0-199 mg/dL] 196 mg/dL (05/07/14: AM) Trig [0-149 mg/dL] 136 mg/dL (05/07/14: AM) HDL [40-84 mg/dL] 64 mg/dL (05/07/14: AM) LDL [0-130 mg/dL] 105 mg/dL (05/07/14: AM) VLDL Cholesterol 27 mg/dL [0-28 mg/dL] (05/07/14: AM) Cardiac Risk 3.1 [0.0-5.0] (05/07/14: AM) TSH [0.35-4.94] 2.32 (05/07/14: AM) Hgb A1c [4.1-5.6 %] 6.1 % *HI* (05/07/14:23 AM) eAvg Glucose 128.4 mg/dL (05/07/14:23 AM) 1Result Comment: Specimen slighly hemolyzed. LDH, AST and Direct Bilirubin may be affected. 2Result Comment: Multiply eGFR results by 1.21 for race. Urinalysis Most recent to 1 oldest [Reference Range]: UA Color Yellow (05/07/14 10:14 AM) UA Appear Clear (05/07/14 10:14 AM) UA pH [5.0-8.0] 7.0 (05/07/14 10:14 AM) UA Leuk Est Negative [Negative] (05/07/14 10:14 AM) UA Nitrite Negative [Negative] (05/07/14 10:14 AM) UA Protein Negative [Negative] (05/07/14 10:14 AM) UA Glucose Negative [Negative] (05/07/14 10:14 AM) UA Ketones Negative [Negative] (05/07/14 10:14 AM) UA Urobilinogen 0.2 mg/dL [<1.0 mg/dL] (05/07/14 10:14 AM) UA Bili [Negative] Negative (05/07/14 10:14 AM) UA Blood [Negative] Negative (05/07/14 10:14 AM) UA Spec Grav 1.015 [1.003-1.030] (05/07/14 10:14 AM) Type Clean Catch (05/07/14 10:14 AM) Immunizations Vaccine Date Refusal Reason hepatitis A-hepatitis B vaccine 05/07/14 hepatitis A-hepatitis B vaccine 03/20/13 influenza virus vaccine, inactivated1 12/11/13 pneumococcal 23-polyvalent vaccine 01/09/07 tetanus/diphtheria/pertussis, acel(Tdap) 03/20/13 tetanus-diphth toxoids (Td) adult/adol 11/26/02 zoster vaccine live 10/26/11 1Result Comment: [12/11/2013] See scanned document Procedures Procedure Date Related Diagnosis Body Site Collection of venous blood by venipuncture 05/07/14 Colonoscopy 2009 Appendectomy 2004 [facility] - Total abdominal hysterectomy and 2004 bilateral salpingo-oophorectomy Biopsy of breast 1998 Hospitalized for nephrosis as a child Social History Social History Type Response Smoking Status Never smoker Assessment and Plan Extracted from: Title: Ambulatory Patient Education Author: Ramy Roger MD Date: 05/07 Family Medicine Preventive Care for Adults, Female A healthy lifestyle and preventive care can promote health and wellness. Preventive health guidelines for women include the following mukherjee practices. A routine yearly physical is a good way to check with your caregiver about your health and preventive screening. It is a chance to share any concerns and updates on your health, and to receive a thorough exam. Visit your dentist for a routine exam and preventive care every 6 months. [place] your teeth twice a day and floss once a day. Good oral hygiene prevents tooth decay and gum disease. The frequency of eye exams is based on your age, health, family medical history, use of contact lenses, and other factors. Follow your caregiver's recommendations for frequency of eye exams. Eat a healthy diet. Foods like vegetables, fruits, whole grains, low-fat dairy products, and lean protein foods contain the nutrients you need without too many calories. Decrease your intake of foods high in solid fats, added sugars, and salt. Eat the right amount of calories for you.Get information about a proper diet from your caregiver, if necessary. Regular physical exercise is one of the most important things you can do for your health. Most adults should get at least 150 minutes of moderate- intensity exercise (any activity that increases your heart rate and causes you to sweat) each week. In addition, most adults need muscle-strengthening exercises on 2 or more days a week. Maintain a healthy weight. The body mass index (BMI) is a screening tool to identify possible weight problems. It provides an estimate of body fat based on height and weight. Your caregiver can help determine your BMI, and can help you achieve or maintain a healthy weight.For adults 20 years and older: A BMI below 18.5 is considered underweight. A BMI of 18.5 to 24.9 is normal. A BMI of 25 to 29.9 is considered overweight. A BMI of 30 and above is considered obese. Maintain normal blood lipids and cholesterol levels by exercising and minimizing your intake of saturated fat. Eat a balanced diet with plenty of fruit and vegetables. Blood tests for lipids and cholesterol should begin at age 20 and be repeated every 5 years. If your lipid or cholesterol levels are high, you are over 50, or you are at high risk for heart disease, you may need your cholesterol levels checked more frequently.Ongoing high lipid and cholesterol levels should be treated with medicines if diet and exercise are not effective. If you smoke, find out from your caregiver how to quit. If you do not use tobacco, do not start. Lung cancer screening is recommended for adults aged 5580 years who are at high risk for developing lung cancer because of a history of smoking. Yearly low-dose computed tomography (CT) is recommended for people who have at least a 22-oldy-qkrc history of smoking and are a current smoker or have quit within the past 15 years. A pack year of smoking is smoking an average of 1 pack of cigarettes a day for 1 year (for example: 1 pack a day for 30 years or 2 packs a day for 15 years). Yearly screening should continue until the smoker has stopped smoking for at least 15 years. Yearly screening should also be stopped for people who develop a health problem that would prevent them from having lung cancer treatment. If you are , do not drink alcohol. If you are , be very cautious about drinking alcohol. If you are not and choose to drink alcohol, do not exceed 1 drink per day. One drink is considered to be 12 ounces (355 mL) of beer, 5 ounces (148 mL) of wine, or 1.5 ounces (44 mL) of liquor. Avoid use of street drugs. Do not share needles with anyone. Ask for help if you need support or instructions about stopping the use of drugs. High blood pressure causes heart disease and increases the risk of stroke. Your blood pressure should be checked at least every 1 to 2 years. Ongoing high blood pressure should be treated with medicines if weight loss and exercise are not effective. If you are 55 to 79 years old, ask your caregiver if you should take aspirin to prevent strokes. Diabetes screening involves taking a blood sample to check your fasting blood sugar level. This should be done once every 3 years, after age 45, if you are within normal weight and without risk factors for diabetes. Testing should be considered at a younger age or be carried out more frequently if you are overweight and have at least 1 risk factor for diabetes. Breast cancer screening is essential preventive care for women. You should practice "breast self-awareness." This means understanding the normal appearance and feel of your breasts and may include breast self-examination. Any changes detected, no matter how small, should be reported to a caregiver. Women in their 20s and 30s should have a clinical breast exam (CBE) by a caregiver as part of a regular health exam every 1 to 3 years. After age 40, women should have a CBE every year. Starting at age 40, women should consider having a mammography (breast X-ray test ) every year. Women who have a family history of breast cancer should talk to their caregiver about genetic screening. Women at a high risk of breast cancer should talk to their caregivers about having magnetic resonance imaging (MRI) and a mammography every year. Breast cancer gene (BRCA )-related cancer risk assessment is recommended for women who have family members with BRCA -related cancers. BRCA -related cancers include breast, ovarian, tubal, and peritoneal cancers. Having family members with these cancers may be associated with an increased risk for harmful changes (mutations ) in the breast cancer genes BRCA1 and BRCA2 . Results of the assessment will determine the need for genetic counseling and BRCA1 and BRCA2 testing. The Pap test is a screening test for cervical cancer. A Pap test can show cell changes on the cervix that might become cervical cancer if left untreated. A Pap test is a procedure in which cells are obtained and examined from the lower end of the uterus (cervix ). Women should have a Pap test starting at age 21. Between ages 21 and 29, Pap tests should be repeated every 2 years. Beginning at age 30, you should have a Pap test every 3 years as long as the past 3 Pap tests have been normal. Some women have medical problems that increase the chance of getting cervical cancer. Talk to your caregiver about these problems. It is especially important to talk to your caregiver if a new problem develops soon after your last Pap test. In these cases, your caregiver may recommend more frequent screening and Pap tests. The above recommendations are the same for women who have or have not gotten the vaccine for human papillomavirus (HPV). If you had a hysterectomy for a problem that was not cancer or a condition that could lead to cancer, then you no longer need Pap tests. Even if you no longer need a Pap test, a regular exam is a good idea to make sure no other problems are starting. If you are between ages 65 and 70, and you have had normal Pap tests going back 10 years, you no longer need Pap tests. Even if you no longer need a Pap test, a regular exam is a good idea to make sure no other problems are starting. If you have had past treatment for cervical cancer or a condition that could lead to cancer, you need Pap tests and screening for cancer for at least 20 years after your treatment. If Pap tests have been discontinued, risk factors (such as a new sexual partner) need to be reassessed to determine if screening should be resumed. The HPV test is an additional test that may be used for cervical cancer screening. The HPV test looks for the virus that can cause the cell changes on the cervix. The cells collected during the Pap test can be tested for HPV. The HPV test could be used to screen women aged 30 years and older, and should be used in women of any age who have unclear Pap test results. After the age of 30 , women should have HPV testing at the same frequency as a Pap test. Colorectal cancer can be detected and often prevented. Most routine colorectal cancer screening begins at the age of 50 and continues through age 75. However, your caregiver may recommend screening at an earlier age if you have risk factors for colon cancer. On a yearly basis, your caregiver may provide home test kits to check for hidden blood in the stool. Use of a small camera at the end of a tube, to directly examine the colon (sigmoidoscopy or colonoscopy ), can detect the earliest forms of colorectal cancer. Talk to your caregiver about this at age 50, when routine screening begins. Direct examination of the colon should be repeated every 5 to 10 years through age 75, unless early forms of pre-cancerous polyps or small growths are found. Hepatitis C blood testing is recommended for all people born from 1945 through 1965 and any individual with known risks for hepatitis C. Practice safe sex. Use condoms and avoid high-risk sexual practices to reduce the spread of sexually transmitted infections (STIs). STIs include gonorrhea, chlamydia, syphilis, trichomonas, herpes, HPV, and human immunodeficiency virus (HIV). Herpes, HIV, and HPV are viral illnesses that have no cure. They can result in disability, cancer, and . Sexually active women aged 25 and younger should be checked for chlamydia. Older women with new or multiple partners should also be tested for chlamydia. Testing for other STIs is recommended if you are sexually active and at increased risk. Osteoporosis is a disease in which the bones lose minerals and strength with aging. This can result in serious bone fractures. The risk of osteoporosis can be identified using a bone density scan. Women ages 65 and over and women at risk for fractures or osteoporosis should discuss screening with their caregivers. Ask your caregiver whether you should take a calcium supplement or vitamin D to reduce the rate of osteoporosis. Menopause can be associated with physical symptoms and risks. Hormone replacement therapy is available to decrease symptoms and risks. You should talk to your caregiver about whether hormone replacement therapy is right for you. Use sunscreen. Apply sunscreen liberally and repeatedly throughout the day. You should seek shade when your shadow is shorter than you. Protect yourself by wearing long sleeves, pants, a wide-brimmed hat, and sunglasses year round, whenever you are outdoors. Once a month, do a whole body skin exam, using a mirror to look at the skin on your back. Notify your caregiver of new moles, moles that have irregular borders, moles that are larger than a pencil eraser, or moles that have changed in shape or color. Stay current with required immunizations. Influenza vaccine. All adults should be immunized every year. Tetanus, diphtheria, and acellular pertussis (Td, Tdap) vaccine. women should receive 1 dose of Tdap vaccine during each . The dose should be obtained regardless of the length of time since the last dose. Immunization is preferred during the 27th to 36th week of gestation. An adult who has not previously received Tdap or who does not know her vaccine status should receive 1 dose of Tdap. This initial dose should be followed by tetanus and diphtheria toxoids (Td) booster doses every 10 years. Adults with an unknown or incomplete history of completing a 3-dose immunization series with Td -containing vaccines should begin or complete a primary immunization series including a Tdap dose. Adults should receive a Td booster every 10 years. Varicella vaccine. An adult without evidence of immunity to varicella should receive 2 doses or a second dose if she has previously received 1 dose. females who do not have evidence of immunity should receive the first dose after . This first dose should be obtained before leaving the health care facility. The second dose should be obtained 48 weeks after the first dose. Human papillomavirus (HPV) vaccine. Females aged 1326 years who have not received the vaccine previously should obtain the 3-dose series. The vaccine is not recommended for use in females. However, testing is not needed before receiving a dose. If a female is found to be after receiving a dose, no treatment is needed. In that case, the remaining doses should be delayed until after the . Immunization is recommended for any person with an immunocompromised condition through the age of 26 years if she did not get any or all doses earlier. During the 3-dose series, the second dose should be obtained 48 weeks after the first dose. The third dose should be obtained 24 weeks after the first dose and 16 weeks after the second dose. Zoster vaccine. One dose is recommended for adults aged 60 years or older unless certain conditions are present. Measles, mumps, and rubella (MMR) vaccine. Adults born before 1954 generally are considered immune to measles and mumps. Adults born in 1954 or later should have 1 or more doses of MMR vaccine unless there is a contraindication to the vaccine or there is laboratory evidence of immunity to each of the three diseases. A routine second dose of MMR vaccine should be obtained at least 28 days after the first dose for students attending postsecondary schools, health care workers, or international travelers. People who received inactivated measles vaccine or an unknown type of measles vaccine during should receive 2 doses of MMR vaccine. People who received inactivated mumps vaccine or an unknown type of mumps vaccine before 1978 and are at high risk for mumps infection should consider immunization with 2 doses of MMR vaccine. For females of childbearing age, rubella immunity should be determined. If there is no evidence of immunity, females who are not should be vaccinated. If there is no evidence of immunity, females who are should delay immunization until after . Unvaccinated health care workers born before 1954 who lack laboratory evidence of measles, mumps, or rubella immunity or laboratory confirmation of disease should consider measles and mumps immunization with 2 doses of MMR vaccine or rubella immunization with 1 dose of MMR vaccine. Pneumococcal 13-valent conjugate (PCV13) vaccine. When indicated, a person who is uncertain of her immunization history and has no record of immunization should receive the PCV13 vaccine. An adult aged 19 years or older who has certain medical conditions and has not been previously immunized should receive 1 dose of PCV13 vaccine. This PCV13 should be followed with a dose of pneumococcal polysaccharide (PPSV23) vaccine. The PPSV23 vaccine dose should be obtained at least 8 weeks after the dose of PCV13 vaccine. An adult aged 19 years or older who has certain medical conditions and previously received 1 or more doses of PPSV23 vaccine should receive 1 dose of PCV13. The PCV13 vaccine dose should be obtained 1 or more years after the last PPSV23 vaccine dose. Pneumococcal polysaccharide (PPSV23) vaccine. When PCV13 is also indicated , PCV13 should be obtained first. All adults aged 65 years and older should be immunized. An adult younger than age 65 years who has certain medical conditions should be immunized. Any person who resides in a senior living or long -term care facility should be immunized. An adult smoker should be immunized. People with an immunocompromised condition and certain other conditions should receive both PCV13 and PPSV23 vaccines. People with human immunodeficiency virus (HIV) infection should be immunized as soon as possible after diagnosis. Immunization during chemotherapy or radiation therapy should be avoided. Routine use of PPSV23 vaccine is not recommended for [place], [place] Natives, or people younger than 65 years unless there are medical conditions that require PPSV23 vaccine. When indicated, people who have unknown immunization and have no record of immunization should receive PPSV23 vaccine. One-time revaccination 5 years after the first dose of PPSV23 is recommended for people aged 1964 years who have chronic kidney failure, nephrotic syndrome, asplenia, or immunocompromised conditions. People who received 12 doses of PPSV23 before age 65 years should receive another dose of PPSV23 vaccine at age 65 years or later if at least 5 years have passed since the previous dose. Doses of PPSV23 are not needed for people immunized with PPSV23 at or after age 65 years. Meningococcal vaccine. Adults with asplenia or persistent complement component deficiencies should receive 2 doses of quadrivalent meningococcal conjugate (MenACWY-D) vaccine. The doses should be obtained at least 2 months apart. Microbiologists working with certain meningococcal bacteria, recruits, people at risk during an outbreak, and people who travel to or live in countries with a high rate of meningitis should be immunized. A first-year college student up through age 21 years who is living in a residence looney should receive a dose if she did not receive a dose on or after her 16th birthday. Adults who have certain high-risk conditions should receive one or more doses of vaccine. Hepatitis A vaccine. Adults who wish to be protected from this disease, have certain high-risk conditions, work with hepatitis A-infected animals, work in hepatitis A research labs, or travel to or work in countries with a high rate of hepatitis A should be immunized. Adults who were previously unvaccinated and who anticipate close contact with an international adoptee during the first 60 days after arrival in the [place] from a country with a high rate of hepatitis A should be immunized. Hepatitis B vaccine. Adults who wish to be protected from this disease, have certain high-risk conditions, may be exposed to blood or other infectious body fluids, are household contacts or sex partners of hepatitis B positive people, are clients or workers in certain care facilities, or travel to or work in countries with a high rate of hepatitis B should be immunized. Haemophilus influenzae type b (Hib) vaccine. A previously unvaccinated person with asplenia or sickle cell disease or having a scheduled splenectomy should receive 1 dose of Hib vaccine. Regardless of previous immunization, a recipient of a hematopoietic stem cell transplant should receive a 3-dose series 612 months after her successful transplant. Hib vaccine is not recommended for adults with HIV infection. Preventive Services / Frequency Ages 19 to 39 Blood pressure check. / Every 1 to 2 years. Lipid and cholesterol check. / Every 5 years beginning at age 20. Clinical breast exam. / Every 3 years for women in their 20s and 30s. BRCA -related cancer risk assessment. / For women who have family members with a BRCA -related cancer (breast, ovarian, tubal, or peritoneal cancers). Pap test. / Every 2 years from ages 21 through 29. Every 3 years starting at age 30 through age 65 or 70 with a history of 3 consecutive normal Pap tests. HPV screening. / Every 3 years from ages 30 through ages 65 to 70 with a history of 3 consecutive normal Pap tests. Hepatitis C blood test. / For any individual with known risks for hepatitis C. Skin self-exam. / Monthly. Influenza vaccine. / Every year. Tetanus, diphtheria, and acellular pertussis (Tdap, Td) vaccine. / Consult your caregiver. women should receive 1 dose of Tdap vaccine during each . 1 dose of Td every 10 years. Varicella vaccine. / Consult your caregiver. females who do not have evidence of immunity should receive the first dose after . HPV vaccine. / 3 doses over 6 months, if 26 and younger. The vaccine is not recommended for use in females. However, testing is not needed before receiving a dose. Measles, mumps, rubella (MMR) vaccine. / You need at least 1 dose of MMR if you were born in 1957 or later. You may also need a 2nd dose. For females of childbearing age, rubella immunity should be determined. If there is no evidence of immunity, females who are not should be vaccinated. If there is no evidence of immunity, females who are should delay immunization until after . Pneumococcal 13-valent conjugate (PCV13) vaccine. / Consult your caregiver. Pneumococcal polysaccharide (PPSV23) vaccine. / 1 to 2 doses if you smoke cigarettes or if you have certain conditions. Meningococcal vaccine. / 1 dose if you are age 19 to 21 years and a first -year college student living in a residence looney, or have one of several medical conditions, you need to get vaccinated against meningococcal disease. You may also need additional booster doses. Hepatitis A vaccine. / Consult your caregiver. Hepatitis B vaccine. / Consult your caregiver. Haemophilus influenzae type b (Hib) vaccine. / Consult your caregiver. Ages 40 to 64 Blood pressure check. / Every 1 to 2 years. Lipid and cholesterol check. / Every 5 years beginning at age 20. Lung cancer screening. / Every year if you are aged 5580 years and have a [id number] history of smoking and currently smoke or have quit within the past 15 years. Yearly screening is stopped once you have quit smoking for at least 15 years or develop a health problem that would prevent you from having lung cancer treatment. Clinical breast exam. / Every year after age 40. BRCA -related cancer risk assessment. / For women who have family members with a BRCA -related cancer (breast, ovarian, tubal, or peritoneal cancers). Mammogram. / Every year beginning at age 40 and continuing for as long as you are in good health. Consult with your caregiver. Pap test. / Every 3 years starting at age 30 through age 65 or 70 with a history of 3 consecutive normal Pap tests. HPV screening. / Every 3 years from ages 30 through ages 65 to 70 with a history of 3 consecutive normal Pap tests. Fecal occult blood test (FOBT) of stool. / Every year beginning at age 50 and continuing until age 75. You may not need to do this test if you get a colonoscopy every 10 years. Flexible sigmoidoscopy or colonoscopy. / Every 5 years for a flexible sigmoidoscopy or every 10 years for a colonoscopy beginning at age 50 and continuing until age 75. Hepatitis C blood test. / For all people born from 1945 through 1965 and any individual with known risks for hepatitis C. Skin self-exam. / Monthly. Influenza vaccine. / Every year. Tetanus, diphtheria, and acellular pertussis (Tdap/Td) vaccine. / Consult your caregiver. women should receive 1 dose of Tdap vaccine during each . 1 dose of Td every 10 years. Varicella vaccine. / Consult your caregiver. females who do not have evidence of immunity should receive the first dose after . Zoster vaccine. / 1 dose for adults aged 60 years or older. Measles, mumps, rubella (MMR) vaccine. / You need at least 1 dose of MMR if you were born in 1957 or later. You may also need a 2nd dose. For females of childbearing age, rubella immunity should be determined. If there is no evidence of immunity, females who are not should be vaccinated. If there is no evidence of immunity, females who are should delay immunization until after . Pneumococcal 13-valent conjugate (PCV13) vaccine. / Consult your caregiver. Pneumococcal polysaccharide (PPSV23) vaccine. / 1 to 2 doses if you smoke cigarettes or if you have certain conditions. Meningococcal vaccine. / Consult your caregiver. Hepatitis A vaccine. / Consult your caregiver. Hepatitis B vaccine. / Consult your caregiver. Haemophilus influenzae type b (Hib) vaccine. / Consult your caregiver. Ages 65 and over Blood pressure check. / Every 1 to 2 years. Lipid and cholesterol check. / Every 5 years beginning at age 20. Lung cancer screening. / Every year if you are aged 5580 years and have a 58-[id number]-[id number] history of smoking and currently smoke or have quit within the past 15 years. Yearly screening is stopped once you have quit smoking for at least 15 years or develop a health problem that would prevent you from having lung cancer treatment. Clinical breast exam. / Every year after age 40. BRCA -related cancer risk assessment. / For women who have family members with a BRCA -related cancer (breast, ovarian, tubal, or peritoneal cancers). Mammogram. / Every year beginning at age 40 and continuing for as long as you are in good health. Consult with your caregiver. Pap test. / Every 3 years starting at age 30 through age 65 or 70 with a 3 consecutive normal Pap tests. Testing can be stopped between 65 and 70 with 3 consecutive normal Pap tests and no abnormal Pap or HPV tests in the past 10 years. HPV screening. / Every 3 years from ages 30 through ages 65 or 70 with a history of 3 consecutive normal Pap tests. Testing can be stopped between 65 and 70 with 3 consecutive normal Pap tests and no abnormal Pap or HPV tests in the past 10 years. Fecal occult blood test (FOBT) of stool. / Every year beginning at age 50 and continuing until age 75. You may not need to do this test if you get a colonoscopy every 10 years. Flexible sigmoidoscopy or colonoscopy. / Every 5 years for a flexible sigmoidoscopy or every 10 years for a colonoscopy beginning at age 50 and continuing until age 75. Hepatitis C blood test. / For all people born from 1945 through 1965 and any individual with known risks for hepatitis C. Osteoporosis screening. / A one-time screening for women ages 65 and over and women at risk for fractures or osteoporosis. Skin self-exam. / Monthly. Influenza vaccine. / Every year. Tetanus, diphtheria, and acellular pertussis (Tdap/Td) vaccine. / 1 dose of Td every 10 years. Varicella vaccine. / Consult your caregiver. Zoster vaccine. / 1 dose for adults aged 60 years or older. Pneumococcal 13-valent conjugate (PCV13) vaccine. / Consult your caregiver. Pneumococcal polysaccharide (PPSV23) vaccine. / 1 dose for all adults aged 65 years and older. Meningococcal vaccine. / Consult your caregiver. Hepatitis A vaccine. / Consult your caregiver. Hepatitis B vaccine. / Consult your caregiver. Haemophilus influenzae type b (Hib) vaccine. / Consult your caregiver. Family history and personal history of risk and conditions may change your caregiver's recommendations. Document Released: 05/03/2002 Document Revised: 07/02/2013 Document Reviewed: [facility] Patient Information 2014 [employer] [facility]. Sleep Apnea Sleep apnea is a sleep disorder characterized by abnormal pauses in breathing while you sleep. When your breathing pauses, the level of oxygen in your blood decreases. This causes you to move out of deep sleep and into light sleep. As a result, your quality of sleep is poor, and the system that carries your blood throughout your body (cardiovascular system ) experiences stress. If sleep apnea remains untreated, the following conditions can develop: High blood pressure (hypertension ). Coronary artery disease. Inability to achieve or maintain an erection (impotence ). Impairment of your thought process (cognitive dysfunction ). There are three types of sleep apnea: 1. Obstructive sleep apnea Pauses in breathing during sleep because of a blocked airway. 2. Central sleep apnea Pauses in breathing during sleep because the area of the brain that controls your breathing does not send the correct signals to the muscles that control breathing. 3. Mixed sleep apneaA combination of both obstructive and central sleep apnea. RISK FACTORS The following risk factors can increase your risk of developing sleep apnea: Being overweight. Smoking. Having narrow passages in your nose and throat. Being of older age. Being male. Alcohol use. Sedative and tranquilizer use. Ethnicity. Among individuals younger than 35 years, Americans are at increased risk of sleep apnea. SYMPTOMS Difficulty staying asleep. Daytime sleepiness and fatigue. Loss of energy. Irritability. Loud, heavy snoring. Morning headaches. Trouble concentrating. Forgetfulness. Decreased interest in sex. DIAGNOSIS In order to diagnose sleep apnea, your caregiver will perform a physical examination. Your caregiver may suggest that you take a home sleep test. Your caregiver may also recommend that you spend the night in a sleep lab. In the sleep lab, several monitors record information about your heart, lungs, and brain while you sleep. Your leg and arm movements and blood oxygen level are also recorded. TREATMENT The following actions may help to resolve mild sleep apnea: Sleeping on your side. Using a decongestant if you have nasal congestion. Avoiding the use of depressants, including alcohol, sedatives, and narcotics. Losing weight and modifying your diet if you are overweight. There also are devices and treatments to help open your airway: Oral appliances. These are custom-made mouthpieces that shift your lower jaw forward and slightly open your bite. This opens your airway. Devices that create positive airway pressure. This positive pressure "splints" your airway open to help you breathe better during sleep. The following devices create positive airway pressure: Continuous positive airway pressure (CPAP) device. The CPAP device creates a continuous level of air pressure with an air pump. The air is delivered to your airway through a mask while you sleep. This continuous pressure keeps your airway open. Nasal expiratory positive airway pressure (EPAP) device. The EPAP device creates positive air pressure as you exhale. The device consists of single-use valves, which are inserted into each nostril and held in place by adhesive. The valves create very little resistance when you inhale but create much more resistance when you exhale. That increased resistance creates the positive airway pressure. This positive pressure while you exhale keeps your airway open , making it easier to breath when you inhale again. Bilevel positive airway pressure (BPAP) device. The BPAP device is used mainly in patients with central sleep apnea. This device is similar to the CPAP device because it also uses an air pump to deliver continuous air pressure through a mask. However, with the BPAP machine, the pressure is set at two different levels. The pressure when you exhale is lower than the pressure when you inhale. Surgery. Typically, surgery is only done if you cannot comply with less invasive treatments or if the less invasive treatments do not improve your condition. Surgery involves removing excess tissue in your airway to create a wider passage way. Document Released: 02/25/2003 Document Revised: 07/02/2013 Document Reviewed: [facility] Patient Information 2014 [employer]. No follow up information was provided. Extracted from: Title: Female Physical Author: Ramy Roger MD Date: 05/07/14 Impression and Plan Diagnosis Well adult exam (ICD9 V70.0, Discharge, Medical). Visit for screening mammogram (ICD9 V76.12, Discharge, Medical). Plantar fasciitis, left (ICD9 728.71, Discharge, Medical). MIRELLA (obstructive sleep apnea) (ICD9 327.23, Discharge, Medical). Need for hepatitis A and B vaccination (ICD9 V05.3, Discharge, Medical). Metabolic syndrome (ICD9 277.7, Discharge, Medical). Impaired fasting blood sugar (ICD9 790.21, Discharge, Medical). Hypertension (ICD9 401.9, Discharge, Medical). Hyperlipidemia (ICD9 272.4, Discharge, Medical). GERD (ICD9 530.81, Discharge, Medical). Plan: [facility] weight management recommended to assist you with weight loss , healthy diet and daily exercise. This is essential for management of your Metabolic syndrome and sleep apnea. Continue your current meds. Lab today. Schedule mammograms at the lab desk. Your second Twinrix vaccine (hepatitis A and B) will be given today. See me in 3 months for hypertension., Use clotrimazole cream or Monistat Derm cream twice a day to your leg rashes for at least 2 weeks.. Orders Orders (Selected) Outpatient Orders Ordered Periodic Comp Preventive Med 40 to 64 years Est 77569: hepatitis A-hepatitis B vaccine: 0.5 mL, IntraMuscular, Once Future (On Hold) CBC w/ Differential: CMP: Fasting Lipid Profile: Hgb A1c: Mammogram Routine Screening Bilat: Routine Urinalysis: TSH 3rd Generation: . Dx/Order Association Plan: Diagnosis: GERD Comment: Ordered: Periodic Comp Preventive Med 40 to 64 years Est 38717; 9:38:00 COMPLIANCE PROGRAM MANAGER, Well adult exam | MIRELLA (obstructive sleep apnea) | Hypertension | Impaired fasting blood sugar | Metabolic syndrome Diagnosis: Hyperlipidemia Comment: Ordered: Periodic Comp Preventive Med 40 to 64 years Est [id number]; 9:38:00 COMPLIANCE PROGRAM MANAGER, Well adult exam | MIRELLA (obstructive sleep apnea) | Hypertension | Impaired fasting blood sugar | Metabolic syndrome Diagnosis: Hypertension Comment: Ordered: Periodic Comp Preventive Med 40 to 64 years Est [id number]; 9:38:00 COMPLIANCE PROGRAM MANAGER, Well adult exam | MIRELLA (obstructive sleep apnea) | Hypertension | Impaired fasting blood sugar | Metabolic syndrome Diagnosis: Impaired fasting blood sugar Comment: Ordered: Periodic Comp Preventive Med 40 to 64 years Est 08600; 9:38:00 COMPLIANCE PROGRAM MANAGER, Well adult exam | MIRELLA (obstructive sleep apnea) | Hypertension | Impaired fasting blood sugar | Metabolic syndrome Diagnosis: Metabolic syndrome Comment: Ordered: Periodic Comp Preventive Med 40 to 64 years Est [id number]; 9:38:00 COMPLIANCE PROGRAM MANAGER, Well adult exam | MIRELLA (obstructive sleep apnea) | Hypertension | Impaired fasting blood sugar | Metabolic syndrome Diagnosis: Need for hepatitis A and B vaccination Comment: Ordered: hepatitis A-hepatitis B vaccine; 0.5 mL, IntraMuscular, Once, First Dose: 05/07/14 9:37:00 COMPLIANCE PROGRAM MANAGER, Stop Date: 05/07/14 9:37:00 COMPLIANCE PROGRAM MANAGER Periodic Comp Preventive Med 40 to 64 years Est [id number]; 05/07/14 9:38:00 COMPLIANCE PROGRAM MANAGER, Well adult exam | MIRELLA (obstructive sleep apnea) | Hypertension | Impaired fasting blood sugar | Metabolic syndrome Diagnosis: MIRELLA (obstructive sleep apnea) Comment: Ordered: Periodic Comp Preventive Med 40 to 64 years Est [id number]; 9:38:00 COMPLIANCE PROGRAM MANAGER, Well adult exam | MIRELLA (obstructive sleep apnea) | Hypertension | Impaired fasting blood sugar | Metabolic syndrome Diagnosis: Plantar fasciitis, left Comment: Diagnosis: Visit for screening mammogram Comment: Ordered: Periodic Comp Preventive Med 40 to 64 years Est 16611; 9:38:00 COMPLIANCE PROGRAM MANAGER, Well adult exam | MIRELLA (obstructive sleep apnea) | Hypertension | Impaired fasting blood sugar | Metabolic syndrome Diagnosis: Well adult exam Comment: Ordered: hepatitis A-hepatitis B vaccine; 0.5 mL, IntraMuscular, Once, First Dose: 05/07/14 9:37:00 COMPLIANCE PROGRAM MANAGER, Stop Date: 05/07/14 9:37:00 COMPLIANCE PROGRAM MANAGER Periodic Comp Preventive Med 40 to 64 years Est [id number]; 05/07/14 9:38:00 COMPLIANCE PROGRAM MANAGER, Well adult exam | MIRELLA (obstructive sleep apnea) | Hypertension | Impaired fasting blood sugar | Metabolic syndrome Additional Orders: Comment: Future Orders: CBC w/ Differential,Blood, Routine Collect, 05/07/14 , Once, Lab Collect, Hypertension, Order for future visit Future Orders: CMP,Blood, Routine Collect, 05/07/14, Once, Lab Collect, Hypertension, Order for future visit Future Orders: Fasting Lipid Profile,Blood, Routine Collect, , Once, Lab Collect, Hyperlipidemia, Order for future visit Future Orders: Hgb A1c,Blood, Routine Collect, 05/07/14, Once, Lab Collect, Impaired fasting blood sugar, Order for future visit Future Orders: Mammogram Routine Screening Bilat,05/07/14, Routine , Reason: Screening routine, Visit for screening mammogram | Well adult exam Future Orders: Routine Urinalysis,Urine, Routine collect, 05/07/14 , Once, Nurse Collect Non-Blood, Hypertension, Order for future visit Future Orders: TSH 3rd Generation,Blood, Routine Collect, 05/07/14 , Once, Lab Collect, Hyperlipidemia, Order for future visit End of Orders .
[2016-06-03] MEDS ORDERED: LOSA1TAB96 PO (02:46)
--- NOTE | 2016-06-03 02:47 | NUR ---
PROVIDER DR PASTOR IN ROOM TO SEE PT
--- OUTSIDE RECORDS SUMMARY | 2016-06-03 02:54 | XMS REPORT | Continuity of Care Document ---
Author Author [facility] Organization [facility] Address Unknown Phone Unavailable Allergies Medications Problems Procedures Results Encounters ACCT No. Visit Date/Time Discharge Status Pt. Type Provider Facility Loc./Unit Complaint [id number] 05/09/2013 18:11:00 05/09/2013 23 :59:59 CLS Outpatient
[2016-06-03] MEDS ORDERED: NORMAL SALINE 1,000 ML IV ONE (02:56)
[2016-06-03] MEDS ORDERED: ONDANSETRON 4mg/2ml INJECTION IV ONE (03:00)
[2016-06-03] MEDS ORDERED: KETOROLAC 30mg/ml INJECTION IV ONE (03:00)
--- NOTE | 2016-06-03 03:01 | ERPDOC ---
Departure Disposition Decision Date: Jun 03, 2016 Disposition Decision Time: 05:48 Disposition: 02 TO [facility] Impression Impression Impression: Primary Impression: Diverticulitis large intestine Diverticulitis bleeding: without bleeding Diverticulitis complication: without perforation or abscess Qualified Codes: K57.32 - Diverticulitis of large intestine without perforation or abscess without bleeding Severity: Severe Condition: Improved Seen By: Physician only Referrals: JOSEPH WHYTE MD (Family) Problems/Meds/Labs Reviewed?: Yes Medications reviewed and manag: Yes Follow up care ordered?: Yes Mental Status: Alert, Oriented HPI - Abdominal Pain General Chief Complaint: Abdominal Pain Stated Complaint: LOWER ABD PAIN Time Seen by Provider: 02:47 Source: patient, family History/Exam Limitations: no limitations HPI - Abdominal Pain Initial Comments 65yo woman presents to the ER tonight for LLQ abdominal pain. Pain started two days ago, is crampy, achy with occasional shooting. Pain has improved with ibuprofen, but sx are much worse tonight. No N/V/D/C. Has never had sx like this before. Pt was seen by her PCM for this yesterday and placed on atbx for a presumptive UTI (despite sterile urine); no relief of sx. Occurred At: home Onset: Gradual, Getting worse Pain Scale: Now & Worst: 4/10 Quality: aching, cramping, sharpness Location: LLQ Radiation: no radiation 1 - Pain 2 - Movement Activities at Onset: none Modifying Factors: IMPROVES WITH: analgesics, WORSE WITH: exercise, movement, palpation, walking Associated Symptoms: denies symptoms Hx of Similar Symptoms: No Allergies: Coded Allergies: phenazopyridine (Verified Allergy, Mild, COUGH, 06/03/16) lisinopril (Verified Allergy, Unknown, COUGH, 06/03/16) Past History Past Medical History Metabolic: hypercholesterolemia, hypertension GI: GERD, constipation Vaccines Hx Influenza Vaccination: Yes (2007) Hx Pneumococcal Vaccination: No (2-3 YRS. AGO) Review of Systems GI Lower Abdomen: pain, see HPI All other Systems All Other Systems: Reviewed and Negative Physical Exam General General Nourishment: well nourished, well developed, appears stated age, no acute distress, adult, obese General Body Habitus: well groomed Vitals and Pain First Documented Vital Signs Date Time Temp Pulse Resp B/P Pulse Ox O2 Delivery O2 Flow Rate FiO2 06/03/16 02:29 98.4 79 20 152/72 95 Room Air Weight: Kilograms: Height (feet): Height (inches): Triage Pain Scale: RN VS reviewed by Provider: Yes Normal Exams: Head: Normocephalic w/o trauma Eyes: Pupils are PERRLA w/ EOMI, No scleral icterus, irritation ENMT: No facial trauma, nasal exudates, pharyngeal erythema Neck: Full range of motion, without adenopathy, JVD Lymphatic: No lymphadenopathy Musculoskeletal: No tenderness, or deformity noted Integumentary: No rashes, hives, or bruising noted Neurologic: Patient is alert, and oriented Psychiatric: Patient exhibits, appropriate attention Respiratory (brief) Respiratory: FOUND: clear all ramirez, equal bilaterally, symmetrical, NOT FOUND : rales, wheezes Cardiovascular (brief) Cardiac: FOUND: regular rate, regular rhythm, NOT FOUND: click, gallop, murmur , pedal edema, peripheral edema, rub Capillary Refill: <2 sec Pulses: all distal extremities, equal, strong Abdomen (brief) Abdominal Brief: FOUND: bowel normo active x4, soft, tender (TTP along LLQ; questionably palpable mass along inguinal canal with valsalva; valsalva reproduces pts sx.), NOT FOUND: distended, hepatosplenomegaly, pulsatile mass Differential Diagnoses Considering: Constipation, Diverticulitis, Gastroenteritis, Hernia, Ileus, Ovarian Cyst, Ovarian Torsion, Pyelonephritis, Renal Colic, Tubovarian Abscess, UTI, Volvulus Progress Results/Orders Orders Procedure Category Date Status Time Ciprofloxacin (Cipro PHA 06/03/16 In Process I.V.) 09:00 Metronidazole Ivpb PHA 06/03/16 Complete (Flagyl I.V.) 05:15 Place In Facility: ED ADM 06/03/[address] In Facility As: ADMIT 06/03/16 Transmitted 06:46 Activity As Tolerated SUKHDEV 06/03/16 In Process 06:46 Npo: Nothing By Mouth DIET 06/03/16 Complete Breakfast Ondansetron Inj PHA 06/03/16 In Process (Zofran) 07:00 Cbc W/Auto LAB 06/04/16 Logged Diff-Reflex Manual 04:00 Bmp - Basic Metabolic LAB 06/04/16 Logged Panel 04:00 Magnesium LAB 3/17/17 Logged 04:00 Measure Vital Signs SUKHDEV 06/03/16 In Process 06:46 Compression Type Scd/ SUKHDEV 06/03/16 In Process Asif Hose 06:46 Ns Kcl 20 Meq (Normal PHA 06/03/16 In Process Saline W/ Kcl 20 M 07:00 Ketorolac (Toradol) PHA 06/03/16 In Process 07:00 Pantoprazole PHA 06/03/16 In Process (Protonix Iv) 09:00 Metronidazole Ivpb PHA 06/03/16 Complete (Flagyl I.V.) 07:00 Losartan/Hctz 100/25 PHA 06/03/16 In Process (Hyzaar 100/25) 09:00 Lovastatin (Mevacor) PHA 06/03/16 In Process 22:00 Atenolol (Tenormin PHA 06/03/16 In Process 100 Mg) 22:00 Clear Liquid Diet DIET 06/03/16 Transmitted Lunch Metronidazole Ivpb PHA 06/03/16 In Process (Flagyl I.V.) 14:00 Potassium Chloride PHA 06/03/16 Complete (Kdur) 18:15 Lab Results Medications Current ED Medications Sodium Chloride (Normal Saline IV) 1,000 ml @ 0 mls/hr Q0M ONCE IV Last administered on 06/03/16 03:53; Start 06/03/16 at 02:56; Stop 06/03/16 at 02:58 ; Status DC Ondansetron HCl (Zofran) 4 mg O ONCE IV Last administered on 06/03/16 03:50; Start 06/03/16 at 03:00; Stop 06/03/16 at 03:01; Status DC Ketorolac Tromethamine (Toradol) 30 mg O ONCE IV Last administered on 03:53; Start 06/03/16 at 03:00; Stop 06/03/16 at 03:01; Status DC Iohexol 1 bottle 1 bottle STK-MED ONCE .ROUTE ; Start 06/03/16 at 04:00; Stop at 04:01; Status DC Sodium Chloride (NS) 100 ml @ As Directed STK-MED ONCE .ROUTE ; Start 06/03/16 at 04:00; Stop 06/03/16 at 04:01; Status DC Sodium Chloride 10 ml 10 ml STK-MED ONCE .ROUTE ; Start 06/03/16 at 04:00; Stop 06/03/16 at 04:01; Status DC Metronidazole/ Sodium Chloride (Flagyl I.v./NS) 100 ml @ 100 mls/hr O ONCE IV Last administered on 06/03/16 05:30; Start 06/03/16 at 05:15; Stop 06/03/16 at 06:14; Status DC Progress Progress 65yo woman with diverticulitis with possibility of microperf. Pt started on IV atbx to cover for typical organisms. Pain already controlled. Will contact hospitalist for admission for IV atbx and observation to ensure improvement. Consult/PCP Consult/PCP : Physician Contacted: Nestor Telemed Time Called: 05:26 Time of first response: 05:45 Type of discussion: Admit Discussion/PCP Discussion Details Delay due to being on another line: Will accept pt for admission. CT CT : CT: Abd/Pelvis IV contrast Interpretation: Abnormal (Diverticulitis with inflammatory mass; cannot r/o perforation.), Discussed w/ Radiologist, Reviewed Written Report ERICA PASTOR DO Jun 03, 2016 03:01 BUN/Creatinine Ratio 20RATIO Glucose Level 158MG/DL Calculated Osmolality 270MOSM/KG Calcium Level 9.1MG/DL Icterus Index < 2 Chemistry Specimen Hemolysis 30 Urine Collection Type Cleancatch-midstream Urine Color Yellow Urine Turbidity Clear Urine pH 5.5 Urine Specific [place] 1.010 Urine Protein Negative Urine Glucose (UA) Negative Urine Ketones Trace Urine Blood Trace-intact Urine Nitrite Negative Urine Bilirubin Negative Urine Urobilinogen 0.2EU/DL Urine Leukocyte Esterase Negative Urinalysis Comment Microscopic not ind. Medications Current ED Medications Sodium Chloride (Normal Saline IV) 1,000 ml @ 0 mls/hr Q0M ONCE IV Last administered on 06/03/16 03:53; Start 06/03/16 at 02:56; Stop 06/03/16 at 02:58 ; Status DC Ondansetron HCl (Zofran) 4 mg O ONCE IV Last administered on 06/03/16 03:50; Start 06/03/16 at 03:00; Stop 06/03/16 at 03:01; Status DC Ketorolac Tromethamine (Toradol) 30 mg O ONCE IV Last administered on 03:53; Start 06/03/16 at 03:00; Stop 06/03/16 at 03:01; Status DC Iohexol 1 bottle 1 bottle STK-MED ONCE .ROUTE ; Start 06/03/16 at 04:00; Stop at 04:01; Status DC Sodium Chloride (NS) 100 ml @ As Directed STK-MED ONCE .ROUTE ; Start 06/03/16 at 04:00; Stop 06/03/16 at 04:01; Status DC Sodium Chloride 10 ml 10 ml STK-MED ONCE .ROUTE ; Start 06/03/16 at 04:00; Stop 06/03/16 at 04:01; Status DC Ciprofloxacin 400 mg/Dextrose/Water 400 ml @ 200 mls/hr Q12HR IV ; Start at 09:00 Metronidazole/ Sodium Chloride (Flagyl I.v./NS) 100 ml @ 100 mls/hr O ONCE IV Last administered on 06/03/16t 05:30; Start 06/03/16 at 05:15; Stop 06/03/16 at 06:14 Consult/PCP Consult/PCP : Physician Contacted: Nestor Mitchell Time Called: 05:26 Time of first response: 05:45 Type of discussion: Admit Discussion/PCP Discussion Details Delay due to being on another line: Will accept pt for admission. CT CT : CT: Abd/Pelvis IV contrast Interpretation: Abnormal (Diverticulitis with inflammatory mass; cannot r/o perforation.), Discussed w/ Radiologist, Reviewed Written Report ERICA PASTOR DO Jun 03, 2016 03:01
--- NOTE | 2016-06-03 03:45 | NUR ---
UA PT AMBULATED TO THE BATHROOM. UA COLLECTED AND SENT TO LAB
[2016-06-03 03:48] LABS: BASOPHILS % (AUTO) 0.1 % (0-2); EOSINOPHILS # (AUTO) 0.3 T/MM3 (0-0.5); EOSINOPHILS % (AUTO) 1.5 % (0-4); HCT - HEMATOCRIT 36.7 % (36-46); IMMATURE GRANULOCYTE # (AUTO) 0.04 T/MM3 (0.00-0.03); IMMATURE GRANULOCYTE % (AUTO) 0.2 % (0.0-0.5); LYMPHOCYTES # (AUTO) 1.2 T/MM3 (1-4.8); LYMPHOCYTES % (AUTO) 7.3 % (23-45); MEAN CORPUSCULAR HGB 31.3 UUG (26-34); MEAN CORPUSCULAR HGB CONC(MCHC 32.7 GM/DL (31-37); MEAN CORPUSCULAR VOLUME 95.8 UM3 (80-100); MEAN PLATELET VOLUME 9.7 UM3 (9.4-12.4); MONOCYTES # (AUTO) 1.3 T/MM3 (0-0.8); MONOCYTES % (AUTO) 7.9 % (0-9.0); RED BLOOD COUNT 3.83 M/MM3 (4.00-5.20); WBC - WHITE BLOOD COUNT 16.9 T/MM3 (4.5-11.0)
[2016-06-03 03:52] LABS: ANION GAP 9 MEQ/L (5-15); BUN/CREATININE RATIO 20 RATIO (6-26); CALCIUM 9.1 MG/DL (8.4-10.2); CHLORIDE 103 MEQ/L (98-107); CO2 - CARBON DIOXIDE 26 MEQ/L (22-30); CREATININE 0.7 MG/DL (0.7-1.2); GLOMERULAR FILTRATION RATE 85; GLUCOSE 158 MG/DL (65-110); POTASSIUM 3.3 MEQ/L (3.6-5); SODIUM 138 MEQ/L (134-144)
[2016-06-03] MEDS ORDERED: IOHEXOL 300 MG/ML 100ml INJECTION ONE (04:00)
[2016-06-03] MEDS ORDERED: NORMAL SALINE 100 ML ONE (04:00)
[2016-06-03] MEDS ORDERED: SALINE FLUSH 10ml SYRINGE ONE (04:00)
[2016-06-03 04:05] LABS: BLOOD, URINE TRACE-INTACT (NEGATIVE); COLOR,URINE YELLOW (YELLOW); LEUKOCYTE ESTERASE ,URINE NEGATIVE (NEGATIVE); NITRITE,URINE NEGATIVE (NEGATIVE); UROBILINOGEN,URINE 0.2 EU/DL (NORMAL)
--- NOTE | 2016-06-03 04:06 | NUR ---
TO CT VIA CART
--- NOTE | 2016-06-03 04:16 | NUR ---
RETURN FROM CT
[2016-06-03] MEDS ORDERED: METRONIDAZOLE IVPB 500 MG in NORMAL SALINE 100 ML IV ONE (05:15)
--- NOTE | 2016-06-03 05:38 | HPPDOC ---
ESTUARDO WYMAN MD 06/03/16 0536: HPI - Adult Date DATE: 06/03/16 TIME: 05:33 General History of Present Illness This is a 65 y/o female who presents with abdominal pain in LLQ x 2 - 3 days. She states it has primarily been in her LLQ and left-mid quadrant and has been progressively worse since this past Tuesday. 2 days ago she went to an urgent care clinic and they did a UA which was negative. Given that pain persisted patient came to the ED late last night/early this AM. Patient denies fevers, denies sweats, denies n/v/d/c and denies melena and BRBPR. In ER, patient had CT scan which showed sigmoid colonic thickening, diverticulosis w/ diverticulitis with a 5.2 x 3.8 cm inflammatory mass c/w acute diverticulitis with concern for possible micorperforation although no free air, free fluid or abscess was noted. WBC = 16.9. Patient received Cipro & Flagyl IV. Patient given 1 L NS and Toradol for pain and patient is comfortablle for now. Patient admitted to the Hospitalist service for further evaluation and treatment. She was resting more comfortably at the time that I visited with her. . Past Medical History Past Medical History HTN GERD HLD Current Medications Home Meds Reported Medications Losartan/Hydrochlorothiazide (Losartan-Hctz 100-25 mg Tab) 1 Each Tablet, 1 TAB PO DAILY, TAB 06/03/16 Multivitamins (Multiple Vitamin) 1 Tab Tablet, 1 TAB PO DAILY, 0 Refills 09/04/09 [Fiber Con] No Conflict Check, 2 HS, 0 Refills 09/04/09 Omeprazole Magnesium (Prilosec Otc) 20 Mg Tablet.dr, 20 MG PO DAILY, 0 Refills 09/04/09 Flaxseed Oil (Flaxseed Oil) 1,000 Mg Capsule, 1000 MG PO DAILY, 0 Refills 09/04/09 Lovastatin (Lovastatin) 40 Mg Tablet, 40 MG PO HS, 0 Refills 09/04/09 Atenolol (Atenolol) 50 Mg Tablet, 100 MG PO HS, 0 Refills 09/04/09 Estradiol (Estradiol) 1 Mg Tablet, 2 MG PO DAILY, 0 Refills 09/04/09 Discontinued Reported Medications [Vit. B6 And B12] No Conflict Check, 20 MG DAILY, 0 Refills 09/04/09 Olmesartan/Hydrochlorothiazide (Benicar Hct 40-25 Mg Tablet) 1 Tab Tablet, 1 TAB PO DAILY, 0 Refills 09/04/09 Allergies: Coded Allergies: phenazopyridine (Verified Allergy, Mild, COUGH, 06/03/16) lisinopril (Verified Allergy, Unknown, COUGH, 06/03/16) Family History Family History: Patient's mother and brother both w/ diverticular disease. Patient's father w/ HTN, HLD and CAD and in December d/t "heart issues". Social History Smoking Status: Never smoker Substance Use Type: does not use Marital Status: Review of Systems All Other Systems All Other Systems: Reviewed (remainder of 10-point ROS Neg.) Comments 10 Point ROS negative other than that noted above in the HPI. Physical Exam General General Nourishment: well nourished, well developed General Body Habitus: well groomed Vital Signs Vital Signs Date Time Temp Pulse Resp B/P Pulse Ox O2 Delivery O2 Flow Rate FiO2 06/03/16 04:30 76 20 153/72 94 06/03/16 02:29 98.4 Room Air Height (Feet): 5 Height (Inches): 7.00 Eyes Brief: FOUND: EOMI, PERRL, NOT FOUND: scleral icterus Neck Brief: FOUND: midline, NOT FOUND: JVD, adenopathy, nuchal rigidity, tracheal deviation Respiratory Brief: FOUND: clear all ramirez, equal bilaterally, symmetrical, NOT FOUND: rales, wheezes Cardiovascular (brief) Cardiac Brief: FOUND: regular rate, regular rhythm, NOT FOUND: pedal edema, peripheral edema Abdomen (brief) Abdominal Brief: FOUND: BS normo active x4, soft, tender Comments ttp LLQ and Left mid-lower quadrant Abdomen Inspection: NOT FOUND: distention Integumentary (brief) Integumentary Brief: FOUND: dry, pink, warm Neurologic RN Documented GCS Eye Opening: Verbal: Motor: Total: Psychiatric (brief) FOUND: alert, normal affect, oriented Laboratory Laboratory Tests Test 06/03/16 03:32 06/03/16 04:00 White Blood Count 16.9T/MM3 Red Blood Count 3.83M/MM3 Hemoglobin 12.0GM/DL Hematocrit 36.7% Mean Corpuscular Volume 95.8UM3 Mean Corpuscular Hemoglobin 31.3UUG Mean Corpuscular Hemoglobin Concent 32.7GM/DL RDW Standard Deviation 43.5FL Platelet Count 235T/MM3 Mean Platelet Volume 9.7UM3 Immature Granulocyte % (Auto) 0.2% Neutrophils (%) (Auto) 83.0% Lymphocytes (%) (Auto) 7.3% Monocytes (%) (Auto) 7.9% Eosinophils (%) (Auto) 1.5% Basophils (%) (Auto) 0.1% Absolute Immature Granulocyte (auto 0.04T/MM3 Absolute Neutrophils (auto) 14.0T/MM3 Absolute Lymphocytes (auto) 1.2T/MM3 Absolute Monocytes (auto) 1.3T/MM3 Absolute Eosinophils (auto) 0.3T/MM3 Absolute Basophils (auto) 0.0T/MM3 Turbidity < 20 Sodium Level 138MEQ/L Potassium Level 3.3MEQ/L Chloride Level 103MEQ/L Carbon Dioxide Level 26MEQ/L Anion Gap 9MEQ/L Blood Urea Nitrogen 14.0MG/DL Creatinine 0.7MG/DL Glomerular Filtration Rate Calc 85 BUN/Creatinine Ratio 20RATIO Glucose Level 158MG/DL Calculated Osmolality 270MOSM/KG Calcium Level 9.1MG/DL Icterus Index < 2 Chemistry Specimen Hemolysis 30 Urine Collection Type Cleancatch-midstream Urine Color Yellow Urine Turbidity Clear Urine pH 5.5 Urine Specific [place] 1.010 Urine Protein Negative Urine Glucose (UA) Negative Urine Ketones Trace Urine Blood Trace-intact Urine Nitrite Negative Urine Bilirubin Negative Urine Urobilinogen 0.2EU/DL Urine Leukocyte Esterase Negative Urinalysis Comment Microscopic not ind. Assessment & Plan Assessment 1) Acute Diverticulitis POA with concern for possible microperforation 2) Acute Abdominal pain r/t # 1 above 3) HTN 4) HLD 5) GERD 6) Acute Hypokalemia Plan/Intensity of Service 1) Admit to Hospitalist service 2) NPO for now except for sips w/ meds 3) Flagyl and Cipro IV 4) IVFs that of NS + 20 mEq KCL per liter to run at 100 cc/hour 5) Toradol 15mg q 6 hours prn for pain 6) Protonix IV 40mg once daily 7) Resume home meds as indicated 8) Zofran 4mg IV q 6 hours prn for n/v 9) Labs in the AM DVT Prophylaxis: SCD'S Code Status Hospital Course Summary Disclaimer The hospital course summary below is not to be considered part of the above Progress Note. BERLIN DAVIDSON DO (HOSPITALIST) 06/03/16 1119: Past Medical History Current Medications Home Meds Reported Medications Losartan/Hydrochlorothiazide (Losartan-Hctz 100-25 mg Tab) 1 Each Tablet, 1 TAB PO DAILY, TAB 06/03/16 Multivitamins (Multiple Vitamin) 1 Tab Tablet, 1 TAB PO DAILY, 0 Refills 09/04/09 [Fiber Con] No Conflict Check, 2 HS, 0 Refills 09/04/09 Omeprazole Magnesium (Prilosec Otc) 20 Mg Tablet.dr, 20 MG PO DAILY, 0 Refills 09/04/09 Flaxseed Oil (Flaxseed Oil) 1,000 Mg Capsule, 1000 MG PO DAILY, 0 Refills 09/04/09 Lovastatin (Lovastatin) 40 Mg Tablet, 40 MG PO HS, 0 Refills 09/04/09 Atenolol (Atenolol) 50 Mg Tablet, 100 MG PO HS, 0 Refills 09/04/09 Estradiol (Estradiol) 1 Mg Tablet, 2 MG PO DAILY, 0 Refills 09/04/09 Discontinued Reported Medications [Vit. B6 And B12] No Conflict Check, 20 MG DAILY, 0 Refills 09/04/09 Olmesartan/Hydrochlorothiazide (Benicar Hct 40-25 Mg Tablet) 1 Tab Tablet, 1 TAB PO DAILY, 0 Refills 09/04/09 Allergies: Coded Allergies: phenazopyridine (Verified Allergy, Mild, COUGH, 06/03/16) lisinopril (Verified Allergy, Unknown, COUGH, 06/03/16) Assessment & Plan Assessment Patient seen and examined. States she's feeling somewhat better. Gen: Alert and oriented X 3. NAD. CV: RRR Lungs: CTAB Abdomen: soft, TTP suprapubically, RLQ, RUQ, ND, +BS, no r/r/g. Ext: no c/c/e Will change to clear liquids to see how she tolerates this. Continue IV ATBX and supportive care. Change to oral ATBX when appropriate. ESTUARDO WYMAN MD Jun 03, 2016 05:36 BERLIN DAVIDSON DO (HOSPITALIST) Jun 03, 2016 11:19
--- OUTSIDE RECORDS SUMMARY | 2016-06-03 05:57 | XMS REPORT | Continuity of Care Document ---
Author Author [facility] Organization [facility] Address Unknown Phone Unavailable Allergies Medications Problems Procedures Results Encounters ACCT No. Visit Date/Time Discharge Status Pt. Type Provider Facility Loc./Unit Complaint [id number] 05/09/2013 18:11:00 05/09/2013 23 :59:59 CLS Outpatient
--- NOTE | 2016-06-03 06:08 | NUR ---
REPORT CALLED REPORT TO EDWAR VELEZ
--- NOTE | 2016-06-03 06:15 | NUR ---
TRANSFER TO RM 113 VIA CART
--- NOTE | 2016-06-03 06:15 | NUR ---
ADMIT 65 YEAR OLD FEMALE PATIENT ADMITTED TO ROOM 113 VIA CART FROM ED. ABLE TO STAND AND TRANSFER SELF TO THE BED. AWAKE AND ALERT. ORIENTED TO PERSON, PLACE, AND TIME. BROTHER AT THE BEDSIDE. ORIENTED TO ROOM, CALL LIGHT, PLAN OF CARE, ETC. WILL REPORT TO ONCOMING SHIFT AND CONTINUE TO MONITOR.
[2016-06-03 06:20] VITALS: Ht 172.1 cm; Wt 114.4 kg
[2016-06-03 06:21] VITALS: BP 147/84; PULSE 75; RESP 16; TEMP 97.7; O2SAT 93
[2016-06-03] MEDS: CIPROFLOXACIN 400 MG in D5W 200 ML IV SCH ×2 (06:40→20:20)
[2016-06-03] MEDS ORDERED: METRONIDAZOLE IVPB 500 MG in NORMAL SALINE 100 ML IV SCH (07:00)
[2016-06-03] MEDS ORDERED: ONDANSETRON 4mg/2ml INJECTION IV PRN (07:00)
[2016-06-03] MEDS: NS KCL 20 MEQ 1,000 ML IV SCH ×2 (07:52→18:33)
--- NOTE | 2016-06-03 07:58 | NUR ---
PAIN CONTROL Flagyl and Cipro first doses have infused. IVF have been changed to NS with 20 KCL at 100 mls/hr. IV site is WNL. Patient states that pain is left lower and lower central abdomen rated 3/10 currently, that pain is tolerable at this level, that it is less sharp and crampy than before medication. Carenotes on diverticulitis printed and given to patient by way of education regarding her diagnosis. Call light is within reach. Reminded patient about NPO order. She states that her appetite "hasn't been that great lately anyways". States that last BM was yesterday, but that her normal pattern has been disrupted. No diarrhea, no vomiting or nausea. Not aware of running a fever at home, but hasn't been feeling well for several days.
--- NOTE | 2016-06-03 08:02 | DI ---
Indication: ITS.REASON: LLQ pain CT ABD/PELVIS W/CONTRAST ONLY: Comparison: Technique: Patient is scanned from above the diaphragm to below the pubic symphysis after 100 cc Omnipaque 300 intravenous contrast is used with dose reduction imaging technology. Reformatted sagittal and coronal images provided. Findings: Heart size is within normal limits. Lung bases are clear with a mildly elevated right diaphragm. Liver shows diffuse fatty infiltration with a few small low-density areas which do not seem particularly aggressive. Gallbladder and biliary tree are unremarkable. Pancreas is unremarkable. Spleen is homogeneous in texture and normal in size. Adrenal glands are both normal. Retroperitoneum is unremarkable. Both kidneys excrete the contrast in a similar pattern showing no suggestion of obstruction, mass, cyst or abnormal calcifications. Ureters do not appear dilated. Stomach and small bowel showed no abnormality. Large bowel demonstrates diverticula with acute diverticulitis is suggested in the sigmoid region with pericolonic increased mesenteric fat density although, no definitive focal abscess identified. No free fluid or significant free air noted. Bladder contour is unremarkable. No additional acute pelvic findings appreciated. Patient appears of undergone previous hysterectomy. Reformatted imaging shows degenerative changes in the lower lumbar spine with a mild grade 1 spondylolisthesis of L4 on L5 and degenerative changes in both L4-5 and L5-S1 disc spaces. Impression: 1. Distal descending and sigmoid diverticulosis without acute superimposed sigmoid diverticulitis without definitive abscess or significant free air or free fluid. 2. Scattered low-density lesions in the liver without particularly aggressive nature. 3. Findings were communicated to the ordering ER clinician by the V rad service on a callback basis. .
[2016-06-03 09:30] VITALS: BP 125/65; PULSE 66; RESP 18; TEMP 97.5; O2SAT 96
[2016-06-03] MEDS: KETOROLAC 15mg/ml INJECTION IV PRN ×2 (11:18→20:19)
[2016-06-03] MEDS: LOSARTAN/HCTZ 100/25 TABLET PO SCH (11:22)
[2016-06-03 11:25] VITALS: BP 140/69; PULSE 72; RESP 18; TEMP 97.3; O2SAT 97
[2016-06-03] MEDS: PANTOPRAZOLE 40mg INJECTION IV SCH (11:41)
--- NOTE | 2016-06-03 12:23 | NUR ---
STATUS Toradol given for abdominal discomfort rated 4/10 to lower abdomen and LLQ, worse after using the bathroom. Voided 100 ml of regina urine. Clear liquids started and so far has tolerated well. VSS.
[2016-06-03] MEDS: METRONIDAZOLE IVPB 500 MG in NORMAL SALINE 100 ML IV SCH (14:01)
[2016-06-03 16:35] VITALS: BP 134/64; PULSE 75; RESP 16; TEMP 98.6; O2SAT 93
--- NOTE | 2016-06-03 16:43 | NUR ---
STATUS Patient reevaluated. Pain is controlled with one dose of Toradol since arrival to surgical unit.. Up to bathroom and voided clear light regina urine, 200 ml. No stool today, no nausea or vomiting. Lungs are diminished. Continue to encourage deep breathing exercises and ankle pumps. Back to bed after being up in the chair.
[2016-06-03] MEDS ORDERED: POTASSIUM CHLORIDE 20 MEQ TABLET PO ONE (18:15)
[2016-06-03 20:00] VITALS: BP 137/66; PULSE 72; RESP 16; TEMP 99.3; O2SAT 93
--- NOTE | 2016-06-03 20:00 | NUR ---
REPORT Bedside shift report given to Court VANN. Patient has declined additional pain medication this evening, and now notes that she would like a dose for lower quadrant abdominal pain, worse on the left.
[2016-06-03] MEDS: LOVASTATIN 40 MG TABLET PO SCH (20:19)
[2016-06-03] MEDS: ATENOLOL 100 MG TABLET PO SCH (20:19)
[2016-06-04] VITALS (9 sets, daily range): BP systolic 113–144; BP diastolic 61–78; PULSE 60–67; RESP 12–16; TEMP 96.5–98.7; O2SAT 93–96
[2016-06-04] MEDS: METRONIDAZOLE IVPB 500 MG in NORMAL SALINE 100 ML IV SCH ×4 (00:29→23:46)
[2016-06-04] MEDS: KETOROLAC 15mg/ml INJECTION IV PRN ×2 (05:26→15:39)
[2016-06-04 05:35] LABS: BASOPHILS % (AUTO) 0.2 % (0-2); EOSINOPHILS # (AUTO) 0.5 T/MM3 (0-0.5); EOSINOPHILS % (AUTO) 4.5 % (0-4); HCT - HEMATOCRIT 33.8 % (36-46); HGB - HEMOGLOBIN 10.9 GM/DL (12-16); IMMATURE GRANULOCYTE # (AUTO) 0.02 T/MM3 (0.00-0.03); IMMATURE GRANULOCYTE % (AUTO) 0.2 % (0.0-0.5); LYMPHOCYTES # (AUTO) 1.9 T/MM3 (1-4.8); LYMPHOCYTES % (AUTO) 16.2 % (23-45); MEAN CORPUSCULAR HGB 31.3 UUG (26-34); MEAN CORPUSCULAR HGB CONC(MCHC 32.2 GM/DL (31-37); MEAN CORPUSCULAR VOLUME 97.1 UM3 (80-100); MEAN PLATELET VOLUME 9.4 UM3 (9.4-12.4); MONOCYTES # (AUTO) 0.9 T/MM3 (0-0.8); MONOCYTES % (AUTO) 7.6 % (0-9.0); NEUTROPHILS #(AUTO)-ABSOLUTE 8.5 T/MM3 (1.8-7.7); NEUTROPHILS % (AUTO) 71.3 % (33-66); RED BLOOD COUNT 3.48 M/MM3 (4.00-5.20); WBC - WHITE BLOOD COUNT 11.9 T/MM3 (4.5-11.0)
[2016-06-04 05:43] LABS: ANION GAP 7 MEQ/L (5-15); BUN/CREATININE RATIO 14 RATIO (6-26); CALCIUM 8.5 MG/DL (8.4-10.2); CHLORIDE 106 MEQ/L (98-107); CO2 - CARBON DIOXIDE 28 MEQ/L (22-30); CREATININE 0.7 MG/DL (0.7-1.2); GLOMERULAR FILTRATION RATE 85; GLUCOSE 112 MG/DL (65-110); MAGNESIUM 1.8 MG/DL (1.6-2.3); POTASSIUM 3.5 MEQ/L (3.6-5); SODIUM 141 MEQ/L (134-144)
--- NOTE | 2016-06-04 05:56 | NUR ---
STATUS REPORT PT ALERT/ORIENTED X3. VSS ON ROOM AIR. 02 STAYED AROUND 93, IV LEFT FOREARM RUNNING CIPRO/FLAGYL. GAVE PRN PAIN MED X2 DURING THIS SHIFT. DENIES NAUSEA/VOMITING. AMBULATED TO BR SEVERAL TIMES STAND BY ASST. WEARING SCDS. WILL CONTINUE TO MONITOR.
[2016-06-04] MEDS: LOSARTAN/HCTZ 100/25 TABLET PO SCH (08:21)
[2016-06-04] MEDS: PANTOPRAZOLE 40mg INJECTION IV SCH (08:22)
[2016-06-04] MEDS: CIPROFLOXACIN 400 MG in D5W 200 ML IV SCH ×2 (08:22→21:28)
[2016-06-04] MEDS: NS KCL 20 MEQ 1,000 ML IV SCH ×3 (09:56→23:00)
--- NOTE | 2016-06-04 14:43 | NUR ---
CM CM IN TO VISIT WITH PT. SHE IS ALERT AND ORIENTED. HER BROTHER IS PRESENT. PT PLANS TO DC HOME. SHE DENIES DC NEEDS. SHE IS GIVEN CM CONTACT INFORMATION. Addendum: 06/04/16 at 1443 by YOGESH IBARRA RN Amended: Links added.
--- NOTE | 2016-06-04 17:39 | PNPDOC ---
Subjective Date DATE: 06/04/16 TIME: 17:38 Subjective Mrs. Latham complains of minor pain in her left lower quadrant but reports it significantly improved from yesterday. She's had no nausea or vomiting and is tolerating liquids well. She feels that she can advance diet today. She denies dyspnea, fever, lightheadedness, or dysuria. Objective Vital Signs Vital signs Vital Signs Date Time Temp Pulse Resp B/P Pulse Ox O2 Delivery O2 Flow Rate FiO2 06/04/16 15:44 97.4 60 16 123/66 95 Room Air EXAM General-NAD, alert, fluent speech HEENT-conjunctiva clear, sclera anicteric, oropharynx clear Lungs-respirations nonlabored with good airflow and clear lung ramirez Cardiac-regular rhythm, S1-S2 Abd-the abdomen is soft with minimal tenderness on palpation in the left lower quadrant. There is no guarding and bowel sounds are present Ext- trace bilateral lower extremity edema Neuro-moving all extremities well Psych-pleasant, calm, cooperative Height (Feet): 5 Height (Inches): 7.75 Weight (Kilograms): 113.800 Laboratory Laboratory Laboratory Tests 06/03/16 03:32 06/04/16 05:15 Laboratory Tests 06/03/16 03:32 06/04/16 05:[address] abdomen pelvis reviewed by myself demonstrating thickening of the sigmoid colon without abscess or free air Assessment & Plan Assessment Diverticulitis Leukocytosis Hypokalemia Abdominal pain, acute Hypertension GERD Hyperlipidemia Clinically improving, continue Cipro/metronidazole. Good intake of liquids by mouth, advance diet to soft with nursing order to advance to regular as tolerated. Will convert to oral PPI and by mouth antibiotics in a.m. Continue potassium supplementation. Leukocytosis resolving. Recheck labs in the morning. Anticipate discharge tomorrow if continues to improve. Plan/Intensity of Service CT abdomen reviewed, discussed with nursing, laboratory data reviewed. Code Status Full Code Hospital Course Summary Disclaimer The hospital course summary below is not to be considered part of the above Progress Note. Hospital Course Summary 06/04 Clinically improving, continue Cipro/metronidazole. Good intake of liquids by mouth, advance diet to soft with nursing order to advance to regular as tolerated. Will convert to oral PPI. Continue potassium supplementation. Leukocytosis resolving. Anticipate discharge tomorrow if continues to improve. OH PACHECO MD Jun 04, 2016 17:39
[2016-06-04] MEDS ORDERED: ACETAMINOPHEN 500 MG TABLET PO PRN (19:45)
[2016-06-04] MEDS: ATENOLOL 100 MG TABLET PO SCH (21:24)
[2016-06-04] MEDS: LOVASTATIN 40 MG TABLET PO SCH (21:24)
[2016-06-05 02:57] VITALS: PULSE 69; RESP 18
[2016-06-05 03:48] VITALS: BP 151/77; PULSE 65; RESP 18; TEMP 96.6; O2SAT 94
--- NOTE | 2016-06-05 06:32 | NUR ---
Summary Pts VS stable on RA. Pt denies nausea. Pt stated "some pain but I will see if it calms down, if it doesn't I will call you for something for it." Pt has been up to the BR with adequate output and a BM. Side rails up X2, call light w/in reach.
[2016-06-05 06:35] LABS: BASOPHILS % (AUTO) 0.4 % (0-2); EOSINOPHILS # (AUTO) 0.5 T/MM3 (0-0.5); EOSINOPHILS % (AUTO) 6.4 % (0-4); HCT - HEMATOCRIT 33.5 % (36-46); HGB - HEMOGLOBIN 10.8 GM/DL (12-16); IMMATURE GRANULOCYTE # (AUTO) 0.01 T/MM3 (0.00-0.03); IMMATURE GRANULOCYTE % (AUTO) 0.1 % (0.0-0.5); LYMPHOCYTES # (AUTO) 1.7 T/MM3 (1-4.8); LYMPHOCYTES % (AUTO) 21.2 % (23-45); MEAN CORPUSCULAR HGB 31.2 UUG (26-34); MEAN CORPUSCULAR HGB CONC(MCHC 32.2 GM/DL (31-37); MEAN CORPUSCULAR VOLUME 96.8 UM3 (80-100); MEAN PLATELET VOLUME 9.8 UM3 (9.4-12.4); MONOCYTES # (AUTO) 0.7 T/MM3 (0-0.8); MONOCYTES % (AUTO) 9.4 % (0-9.0); NEUTROPHILS #(AUTO)-ABSOLUTE 4.9 T/MM3 (1.8-7.7); NEUTROPHILS % (AUTO) 62.5 % (33-66); RED BLOOD COUNT 3.46 M/MM3 (4.00-5.20); WBC - WHITE BLOOD COUNT 7.8 T/MM3 (4.5-11.0)
[2016-06-05] MEDS ORDERED: OMEPRAZOLE 20 MG CAPSULE PO SCH (07:30)
[2016-06-05 08:19] VITALS: BP 114/95; PULSE 64; RESP 16; TEMP 97.7; O2SAT 95
[2016-06-05] MEDS ORDERED: CIPROFLOXACIN 500 MG TABLET PO SCH (09:00)
[2016-06-05] MEDS ORDERED: METRONIDAZOLE 500 MG TABLET PO SCH (09:00)
[2016-06-05] MEDS: LOSARTAN/HCTZ 100/25 TABLET PO SCH (09:00)
[2016-06-05] MEDS: NS KCL 20 MEQ 1,000 ML IV SCH (09:01)
[2016-06-05 09:37] LABS: ANION GAP 11 MEQ/L (5-15); BUN/CREATININE RATIO 16 RATIO (6-26); CALCIUM 8.6 MG/DL (8.4-10.2); CHLORIDE 107 MEQ/L (98-107); CO2 - CARBON DIOXIDE 25 MEQ/L (22-30); CREATININE 0.7 MG/DL (0.7-1.2); GLOMERULAR FILTRATION RATE 85; GLUCOSE 108 MG/DL (65-110); POTASSIUM 3.9 MEQ/L (3.6-5); SODIUM 143 MEQ/L (134-144)
[2016-06-05 13:04] VITALS: BP 137/69; PULSE 65; RESP 18; TEMP 97; O2SAT 93
[2016-06-05] MEDS ORDERED: CIPR-212 PO (13:49)
[2016-06-05] MEDS ORDERED: METR500T PO (13:49)
--- NOTE | 2016-06-05 14:10 | DSPDOC ---
General Date Date DATE: 06/05/16 TIME: 13:53 Attending Physician Yael Ruiz MD Admitting Physician Yael Ruiz MD Consulting Physician Admitting Diagnosis DIVERTICULITIS Discharge Diagnosis 1. Diverticulitis 2. Hypokalemia, resolved 3. Leukocytosis, resolved 4. Acute left lower quadrant pain, improve 5. Hypertension 6. GERD 7. Hyperlipidemia 8. Anemia, normocytic Laboratory Laboratory Tests Test 06/04/16 05:15 06/05/16 05:50 White Blood Count 11.9T/MM3 (4.5-11.0) 7.8T/MM3 (4.5-11.0) Red Blood Count 3.48M/MM3 (4.00-5.20) 3.46M/MM3 (4.00-5.20) Hemoglobin 10.9GM/DL (12-16) 10.8GM/DL (12-16) Hematocrit 33.8% (36-46) 33.5% (36-46) Mean Corpuscular Volume 97.1UM3 (80-100) 96.8UM3 (80-100) Mean Corpuscular Hemoglobin 31.3UUG (26-34) 31.2UUG (26-34) Mean Corpuscular Hemoglobin Concent 32.2GM/DL (31-37) 32.2GM/DL (31-37) RDW Standard Deviation 44.1FL (36.9-50.2) 43.5FL (36.9-50.2) Platelet Count 268T/MM3 (130-400) 283T/MM3 (130-400) Mean Platelet Volume 9.4UM3 (9.4-12.4) 9.8UM3 (9.4-12.4) Immature Granulocyte % (Auto) 0.2% (0.0-0.5) 0.1% (0.0-0.5) Neutrophils (%) (Auto) 71.3% (33-66) 62.5% (33-66) Lymphocytes (%) (Auto) 16.2% (23-45) 21.2% (23-45) Monocytes (%) (Auto) 7.6% (0-9.0) 9.4% (0-9.0) Eosinophils (%) (Auto) 4.5% (0-4) 6.4% (0-4) Basophils (%) (Auto) 0.2% (0-2) 0.4% (0-2) Absolute Immature Granulocyte (auto 0.02T/MM3 (0.00-0.03) 0.01T/MM3 (0.00-0.03) Absolute Neutrophils (auto) 8.5T/MM3 (1.8-7.7) 4.9T/MM3 (1.8-7.7) Absolute Lymphocytes (auto) 1.9T/MM3 (1-4.8) 1.7T/MM3 (1-4.8) Absolute Monocytes (auto) 0.9T/MM3 (0-0.8) 0.7T/MM3 (0-0.8) Absolute Eosinophils (auto) 0.5T/MM3 (0-0.5) 0.5T/MM3 (0-0.5) Absolute Basophils (auto) 0.0T/MM3 (0-0.2) 0.0T/MM3 (0-0.2) Turbidity < 20 (0-20) < 20 (0-20) Sodium Level 141MEQ/L (134-144) 143MEQ/L (134-144) Potassium Level 3.5MEQ/L (3.6-5) 3.9MEQ/L (3.6-5) Chloride Level 106MEQ/L (98-107) 107MEQ/L (98-107) Carbon Dioxide Level 28MEQ/L (22-30) 25MEQ/L (22-30) Anion Gap 7MEQ/L (5-15) 11MEQ/L (5-15) Blood Urea Nitrogen 10.0MG/DL (7-17) 11.0MG/DL (7-17) Creatinine 0.7MG/DL (0.7-1.2) 0.7MG/DL (0.7-1.2) Glomerular Filtration Rate Calc 85 85 BUN/Creatinine Ratio 14RATIO (6-26) 16RATIO (6-26) Glucose Level 112MG/DL (65-110) 108MG/DL (65-110) Calculated Osmolality 271MOSM/KG (261-280) 275MOSM/KG (261-280) Calcium Level 8.5MG/DL (8.4-10.2) 8.6MG/DL (8.4-10.2) Magnesium Level 1.8MG/DL (1.6-2.3) Icterus Index < 2 (0-7) < 2 (0-7) Chemistry Specimen Hemolysis < 15 (0-25) < 15 (0-25) White count on admission was 16.9 with hemoglobin 12.0. Potassium on admission was 3.3 and creatinine 0.7. Radiology CT of the abdomen and pelvis on 06/03 demonstrated: 1. Distal descending and sigmoid diverticulosis without acute superimposed sigmoid diverticulitis without definitive abscess or significant free air or free fluid. 2. Fatty liver with scattered low-density lesions in the liver without particularly aggressive nature. 3. Degenerative changes in the lower lumbar spine with a mild grade 1 spondylolisthesis of L4 on L5 and degenerative changes in both L4-5 and L5-S1 disc spaces History of Present Illness This is a 65 y/o female who presents with abdominal pain in LLQ x 2 - 3 days. She states it has primarily been in her LLQ and left-mid quadrant and has been progressively worse since this past Tuesday. 2 days ago she went to an urgent care clinic and they did a UA which was negative. Given that pain persisted patient came to the ED late last night/early this AM. Patient denies fevers, denies sweats, denies n/v/d/c and denies melena and BRBPR. In ER, patient had CT scan which showed sigmoid colonic thickening, diverticulosis w/ diverticulitis with concern for possible micorperforation although no free air, free fluid or abscess was noted. WBC = 16.9. Patient received Cipro & Flagyl IV. Patient given 1 L NS and Toradol for pain and patient is comfortablle for now. Patient admitted to the Hospitalist service for further evaluation and treatment. She was resting more comfortably at the time that I visited with her. . Hospital Course Diverticulitis Leukocytosis Hypokalemia Abdominal pain, acute Hypertension GERD Hyperlipidemia Anemia, normocytic, likely chronic Mrs. Latham is paralyzed on 06/03 with acute diverticulitis and questionable microperforation although freer was not visualized on the CT scan. She was treated with IV Cipro and metronidazole. Clear liquids were initiated later on the date of admission with good tolerance and diet was advanced the following day. Pain control improving progressively and the patient was able to convert to oral antibiotics on the morning of 06/05. She was rehydrated and potassium replaced with IV fluids. In retrospect there is likely some component of dehydration present on admission given the drop in hemoglobin that occurred with hydration. Patient was tolerating food and oral medications well by early afternoon on 06/05 and felt stable for discharge. At this time she reports having only minor discomfort in the left lower quadrant. Neither breakfast or lunch aggravated pain. She's had bowel movements and is ambulating without difficulty. She denies fever overnight and none was recorded. On examination but respirations are nonlabored with good airflow, cardiac rhythm is regular, the abdomen is soft with minimal tenderness on palpation in the left lower quadrant and no guarding. Patient was felt stable for discharge the afternoon of 06/05 with plans to follow -up with Dr. Roger within 1 week for reassessment. She is discharged on Cipro and Flagyl to be taken twice a day for an additional 8 days to complete 10 days of therapy. Roxana diet was recommended initially with return to her usual diet over the next 2-3 days. >30 minutes spent on patient care and discharge care coordination today on the date of discharge. -- Problems: Code Status Full Code Home Meds Active Scripts Metronidazole (Flagyl) 500 Mg Tablet, 500 MG PO Q12HR for 8 Days, #16 TAB Prov:YAEL RUIZ MD 06/05/16 Ciprofloxacin HCl (Cipro) 500 Mg Tablet, 500 MG PO Q12HR for 8 Days, #16 TAB Prov:YAEL RUIZ MD 06/05/16 Reported Medications Losartan/Hydrochlorothiazide (Losartan-Hctz 100-25 mg Tab) 1 Each Tablet, 1 TAB PO DAILY, TAB 06/03/16 Multivitamins (Multiple Vitamin) 1 Tab Tablet, 1 TAB PO DAILY, 0 Refills 09/04/09 [Fiber Con] No Conflict Check, 2 HS, 0 Refills 09/04/09 Omeprazole Magnesium (Prilosec Otc) 20 Mg Tablet.dr, 20 MG PO DAILY, 0 Refills 09/04/09 Flaxseed Oil (Flaxseed Oil) 1,000 Mg Capsule, 1000 MG PO DAILY, 0 Refills 09/04/09 Lovastatin (Lovastatin) 40 Mg Tablet, 40 MG PO HS, 0 Refills 09/04/09 Atenolol (Atenolol) 50 Mg Tablet, 100 MG PO HS, 0 Refills 09/04/09 Estradiol (Estradiol) 1 Mg Tablet, 2 MG PO DAILY, 0 Refills 09/04/09 Discontinued Reported Medications [Vit. B6 And B12] No Conflict Check, 20 MG DAILY, 0 Refills 09/04/09 Olmesartan/Hydrochlorothiazide (Benicar Hct 40-25 Mg Tablet) 1 Tab Tablet, 1 TAB PO DAILY, 0 Refills 09/04/09 Face to Face Encounter I met with patient on the day of dismissal and discussed follow up appointments , medications, and safety plan. Discharge Disposition Home Copies To 1: JOSEPH ROGER MD Documentation Requirements Documenting Diagnosis Anemia Anemia Anemia Acuity: Chronic YAEL RUIZ MD Jun 05, 2016 14:00
--- NOTE | 2016-06-05 16:15 | NUR ---
DISMISSAL PATIENT DISMISSED TO HOME FOR SELF CARE TO THE [facility] ENTRANCE. PATIENT AMBULATORY. PATIENT'S SISTER IN LAW WAS THE STRAIGHT CUTTER MACHINE HOME. STABLE AND ON ROOM AIR AT TIME OF DISCHARGE. PERSONAL BELONGINGS RETURNED PRIOR TO D/C. IV CATHETER REMOVED AND IV CATHETER TIP INTACT. D/C INSTRUCTIONS REVIEWED PRIOR TO D/C. TOPICS DISCUSSED INCLUDED: NEW MEDICATIONS, S/S TO REPORT, FOLLOW UP APPOINTMENTS, AND DIET.
--- NOTE | 2016-06-08 12:10 | NUR ---
MEENAKSHI THIS CM CALLED PATIENT AT HOME LEFT VOICE MAIL TO INQUIRE ABOUT HOW SHE IS DOING. CM REQUESTED A CALL BACK FROM PATIENT.
--- NOTE | 2016-06-08 15:42 | NUR ---
CM PATIENT CALLED THIS CM BACK REGARDING DISCHARGE HOSPITAL FOLLOW UP CALL. PATIENT REPORTS THAT SHE IS DOING GOOD, SHE WENT TO HER FOLLOW UP DOCTOR'S APPOINTMENT TODAY. SHE DOES NOT HAVE QUESTIONS OR CONCERNS AT THIS TIME.
== END 2016-06-05 16:15 | disposition home or self-care (01) | DRG 392 ==
LOC: ED 02:29 → EDHOLD 05:50 → SRG 05:50
PROVIDERS: ADMIT Internal Medicine; ATTEND Internal Medicine
DX: K57.32 Diverticulitis of large intestine without perforation or abscess without bleeding (principal); E87.6 Hypokalemia; I10 Essential (primary) hypertension; E78.5 Hyperlipidemia, unspecified; K21.9 Gastro-esophageal reflux disease without esophagitis; D64.9 Anemia, unspecified; Z79.899 Other long term (current) drug therapy
CPT/HCPCS: 36415; 80048; 81003; 83735; 85025; 96365; 96375